=== PATIENT | male | born 1940 | race Caucasian/White ===

== ENCOUNTER 2017-11-12 17:23 | Outpatient (REF) | payer MEDICARE, OTHER, SELFPAY ==
[2017-11-12 21:52] LABS: Hemoglobin A1C 6.1 % (4.5-6.2)
[2017-11-12 22:00] LABS: ALT 30 U/L (12-78); AST 18 U/L (15-37); Albumin 3.2 g/dL (3.4-5.0); Alkaline Phosphatase 95 U/L (46-116); Anion Gap 5.3 mmol/L (3-11); BUN 26 mg/dL (7-18); Bilirubin, Total 0.4 mg/dL (0.2-1.0); CO2 30.7 mmol/L (21.0-32.0); CREATININE 1.42 mg/dL (0.70-1.30); Calcium 8.2 mg/dL (8.5-10.1); Chloride 107 mmol/L (98-107); Cholesterol 157 mg/dL (50-200); Estimated GFR 48.47 (mL/min/1.73m2); Glucose 67 mg/dL (70-100); HDL Cholesterol 60 mg/dL (40-60); LDL CHOLESTEROL 88 mg/dL (<100); Potassium 4.1 mmol/L (3.5-5.1); Sodium 143 mmol/L (136-145); Total Protein 6.1 g/dL (6.4-8.2); Triglyceride 128 mg/dL (30-150)
== END 2017-11-12 17:43 ==
LOC: NCHCN 17:23
PROVIDERS: PCP Family Medicine; Visit Provider Family Medicine
DX: I10 Essential (primary) hypertension (principal); R73.09 Other abnormal glucose; I25.5 Ischemic cardiomyopathy; E78.5 Hyperlipidemia, unspecified; Q61.3 Polycystic kidney, unspecified
CPT/HCPCS: 80053; 80061; 83721; 83036

== ENCOUNTER 2018-11-27 08:37 | Outpatient (REF) | payer MEDICARE, OTHER, SELFPAY ==
[2018-11-27 21:41] LABS: ALT 22 U/L (16-63); AST 18 U/L (15-37); Albumin 3.1 g/dL (3.4-5.0); Alkaline Phosphatase 90 U/L (46-116); Anion Gap 7.1 mmol/L (3-11); BUN 26 mg/dL (7-18); Bilirubin, Total 0.4 mg/dL (0.2-1.0); CO2 28.9 mmol/L (21.0-32.0); CREATININE 1.61 mg/dL (0.70-1.30); Calcium 8.3 mg/dL (8.5-10.1); Calculated LDL 71 mg/dL; Chloride 109 mmol/L (98-107); Cholesterol 144 mg/dL (50-200); Estimated GFR 41.82 (mL/min/1.73m2); Glucose 86 mg/dL (70-100); HDL Cholesterol 54 mg/dL (40-60); Potassium 3.8 mmol/L (3.5-5.1); Sodium 145 mmol/L (136-145); Total Protein 5.9 g/dL (6.4-8.2); Triglyceride 98 mg/dL (30-150)
== END 2018-11-27 08:57 ==
LOC: NCHCN 08:37
PROVIDERS: PCP Family Medicine; Visit Provider Family Medicine
DX: I10 Essential (primary) hypertension (principal); E78.5 Hyperlipidemia, unspecified; R73.09 Other abnormal glucose
CPT/HCPCS: 80053; 80061

== ENCOUNTER 2019-08-04 22:00 | Outpatient (REF) | payer MEDICARE, OTHER, SELFPAY ==
[2019-08-04 20:25] LABS: Anion Gap 9.3 mmol/L (3-11); BUN 26 mg/dL (7-18); CO2 25.7 mmol/L (21.0-32.0); CREATININE 1.51 mg/dL (0.70-1.30); Calcium 8.3 mg/dL (8.5-10.1); Chloride 107 mmol/L (98-107); Estimated GFR 44.92 (mL/min/1.73m2); Glucose 109 mg/dL (74-106); Potassium 4.1 mmol/L (3.5-5.1); Sodium 142 mmol/L (136-145)
== END 2019-08-04 22:20 ==
LOC: NCHCN 22:00
PROVIDERS: PCP Family Medicine; Visit Provider Family Medicine
DX: I10 Essential (primary) hypertension (principal)
CPT/HCPCS: 80048

== ENCOUNTER 2019-11-04 20:25 | Emergency (ER) | payer SELFPAY ==
--- NOTE | 2019-11-05 07:46 | NUR.NOTE ---
Nursing Note: Patient entered in error per Nikki Ndiaye, ROBBY human resources clerk. Aster Steve
== END 2019-11-04 20:40 | disposition other institution (70) ==
PROVIDERS: PCP Family Medicine
DX: Z53.21 Procedure and treatment not carried out due to patient leaving prior to being seen by health care provider (principal)

== ENCOUNTER 2020-01-27 12:57 | Outpatient (REF) | payer MEDICARE, OTHER, SELFPAY ==
[2020-01-27 22:33] LABS: ALT 27 U/L (16-63); AST 19 U/L (15-37); Albumin 3.3 g/dL (3.4-5.0); Alkaline Phosphatase 87 U/L (46-116); BUN 30 mg/dL (7-18); Bilirubin, Total 0.4 mg/dL (0.2-1.0); CREATININE 1.63 mg/dL (0.70-1.30); Calcium 8.7 mg/dL (8.5-10.1); Calculated LDL 80 mg/dL (<100); Chloride 109 mmol/L (98-107); Cholesterol 157 mg/dL (<200); Estimated GFR 41.12 (mL/min/1.73m2); Glucose 104 mg/dL (74-106); HDL Cholesterol 56 mg/dL (40-60); Potassium 3.9 mmol/L (3.5-5.1); Sodium 146 mmol/L (136-145); Total Protein 6.3 g/dL (6.4-8.2); Triglyceride 109 mg/dL (<150)
[2020-01-27 22:40] LABS: Hemoglobin A1C 5.8 % (<5.7)
== END 2020-01-27 13:17 ==
LOC: NCHCN 12:57
PROVIDERS: PCP Family Medicine; Visit Provider Family Medicine
DX: R73.03 Prediabetes (principal); I10 Essential (primary) hypertension; E78.5 Hyperlipidemia, unspecified
CPT/HCPCS: 80053; 80061; 83036

== ENCOUNTER 2020-11-19 18:14 | Outpatient (REF) | payer MEDICARE, OTHER, SELFPAY ==
[2020-11-18 20:47] LABS: HCT 39.6 % (40.0-50.0); HGB 13.2 g/dL (13.5-17.5); MCH 31.5 pg (27.0-33.0); MCHC 33.3 % (32.0-36.0); MCV 94.5 fL (80-95); MPV 10.6 fL (8.0-11.0); Platelet Count 191 10^3/uL (130-400); RBC 4.19 10^6/uL (4.36-5.78); RDW 13.3 % (11.8-14.1); RDW-SD 46.3 fL; WBC 5.75 10^3/uL (4.4-10.8)
[2020-11-18 21:02] LABS: ALT 31 U/L (16-63); AST 18 U/L (15-37); Albumin 3.2 g/dL (3.4-5.0); Alkaline Phosphatase 87 U/L (46-116); Anion Gap 7.8 mmol/L (3-11); BUN 29 mg/dL (7-18); Bilirubin, Total 0.3 mg/dL (0.2-1.0); CO2 27.2 mmol/L (21.0-32.0); CREATININE 1.7 mg/dL (0.70-1.30); Calcium 8.6 mg/dL (8.5-10.1); Chloride 110 mmol/L (98-107); Estimated GFR 39.07 (mL/min/1.73m2); Glucose 102 mg/dL (74-106); Potassium 4.1 mmol/L (3.5-5.1); Sodium 145 mmol/L (136-145); TSH (W/Ref FT4) 2.01 uIU/mL (0.36-3.74); Total Protein 6.1 g/dL (6.4-8.2)
== END 2020-11-19 18:15 | disposition home or self-care (01) ==
LOC: NCHCN 18:14
PROVIDERS: PCP Family Medicine; Visit Provider Family Medicine
DX: E78.5 Hyperlipidemia, unspecified (principal); N18.30 Chronic kidney disease, stage 3 unspecified; R25.1 Tremor, unspecified
CPT/HCPCS: 80053; 85027; 84443

== ENCOUNTER 2021-02-07 10:34 | Outpatient (REF) | payer MEDICARE, OTHER, SELFPAY ==
[2021-02-07 14:44] LABS: HCT 35.5 % (40.0-50.0); HGB 11.5 g/dL (13.5-17.5); MCH 30.7 pg (27.0-33.0); MCHC 32.4 % (32.0-36.0); MCV 94.9 fL (80-95); Platelet Count 206 10^3/uL (130-400); RBC 3.74 10^6/uL (4.36-5.78); RDW 13.5 % (11.8-14.1); RDW-SD 46.9 fL; WBC 6.15 10^3/uL (4.4-10.8)
[2021-02-07 15:20] LABS: Anion Gap 8.5 mmol/L (3-11); BUN 30 mg/dL (7-18); CO2 27.5 mmol/L (21.0-32.0); CREATININE 1.6 mg/dL (0.70-1.30); Calcium 8.4 mg/dL (8.5-10.1); Chloride 107 mmol/L (98-107); Ferritin 205 ng/mL (26-388); Folate 7.3 ng/mL (8.6-20.0); Glucose 87 mg/dL (74-106); Potassium 3.8 mmol/L (3.5-5.1); Sodium 143 mmol/L (136-145)
[2021-02-07 16:00] LABS: Vitamin B12 522 pg/mL (193-986)
== END 2021-02-07 10:35 | disposition home or self-care (01) ==
LOC: NCHCN 10:34
PROVIDERS: PCP Family Medicine; Visit Provider Family Medicine
DX: D53.9 Nutritional anemia, unspecified (principal); I10 Essential (primary) hypertension; N18.30 Chronic kidney disease, stage 3 unspecified; G25.81 Restless legs syndrome
CPT/HCPCS: 80048; 85027; 82607; 82728; 82746

== ENCOUNTER 2021-06-08 09:11 | Inpatient (IN) | payer MEDICARE, OTHER, SELFPAY ==
[2021-06-08] VITALS (55 sets, daily range): BP systolic 121–188; BP diastolic 76–105; PULSE 49–117; RESP 0–22; TEMP 36.2–37.2; O2SAT 93–97
--- NOTE | 2021-06-08 09:00 | DI.CT_ITS ---
Exam(s) CT HEAD WO MR BRAIN WO/W EXAM: MR BRAIN WO/W CLINICAL HISTORY: per bennum. R weakness. TECHNIQUE: Multiplanar multisequence MRI was performed. COMPARISON: CT CT HEAD WO from 06/08/2021 FINDINGS: Noncontrast cranial CT and noncontrast and post contrast brain MRI are interpreted in conjunction. Please note that the patient has a large right upper lobe pulmonary mass highly suspicious for lung c arcinoma. The noncontrast CT shows no significant calvarial bony abnormality. The paranasal sinuses and mastoi d air cells are clear. Orbital and temporal bone structures appear intact. There is mildly hyperattenuating left frontal mass, this appears to be extra-axial and the MRI confir med the extra-axial nature of the mass. The mass causes midline shift of about 4 millimeters to the right. No intracranial hemorrhage identified on CT. MR examination shows a solitary 5.6 cm by 4.4 cm in diameter left frontal extra-axial mass with appar ent dural ???tail??? an with prominent central vascular markings, a pattern which is consistent with meningioma and favors meningioma over dural metastasis. Pattern of enhancement of the mass is mildly heterogeneous and mildly to moderately intense, which is a somewhat atypical presentation for mening ioma but is consistent with the diagnosis of meningioma. No other enhancing lesion or mass lesion identified on MR imaging. Susceptibility weighted imaging s hows no evidence of hemorrhage. Diffusion-weighted imaging shows no diffusion restriction within the aforementioned mass or elsewhere in the brain. There are typical periventricular white matter signal changes consistent with microvascular ischemic process and there are similar findings in the jesus. No other significant signal abnormality seen. M R appearance of the orbits and temporal bone structures is unremarkable. There is normal flow void i n the moltqw-zh-Gehtte vasculature. IMPRESSION: CT and MRI findings of a large left frontal extra-axial mass with appearance most consistent with men ingioma, dural metastasis not entirely excluded but unlikely. No other mass lesion identified to sug gest presence metastatic process. Midline shift to the right is estimated at about 4-5 millimeters. DATA REPOSITORY:
--- NOTE | 2021-06-08 09:12 | W.ED.GENAD ---
Discharge Plan Disposition Patient Disposition: [facility] INPATIENT Condition: Improving Discharge Details Clinical Impression: Mass of right lung, Intracranial mass Primary Care Provider: Efrain Doss ED Provider: Aneesh Escalona Home Meds and New Rx's Prescriptions: Continued cephalexin 500 MG capsule 500 mg PO TID 0RF nitroglycerin 0.4 MG tablet, sublingual 0.4 mg Sublingual DIRECTED PRN0RF hydrochlorothiazide 25 MG tablet 25 mg PO DAILY 0RF aspirin [Aspir-81] 81 MG tablet,delayed release (DR/EC) 81 mg PO DAILY 0RF clopidogrel [Plavix] 75 MG tablet 75 mg PO DAILY 0RF atorvastatin [Lipitor] 80 MG tablet 80 mg PO DAILY 0RF metoprolol succinate 25 MG tablet extended release 24 hr 25 mg PO DAILY 0RF losartan 50 mg Tablet 50 mg PO DAILY 0RF levetiracetam 500 mg Tablet 500 mg PO BID 0RF carbidopa-levodopa 25-100 mg Tablet 1 tab PO TID 0RF Medical Decision Making This is a 80-year-old male brought by EMS from his home in [place]. Unclear the exact onset, but patient apparently felt unwell at approximately 5 AM, went back to bed, then awoke and had right arm and leg weakness with associated headache and light sensitivity. He is not well-known to our hospital but has notes of history of hypertension, colon cancer, hypercholesterolemia, coronary artery disease status post stenting. The patient states to me he has a history of a brain mass, but he does have some mild expressive aphasia. He states to me he has been seen at [place] for this and would not want to have surgery. Upon arrival the patient is able to converse. He is hypertensive with a pulse in the low 60s to 50s. Oxygenating normally and protecting his airway. His exam reveals right arm greater than leg weakness and right upper extremity dysmetria/ataxia. A stat noncontrast CT scan of the head reveals a large left-sided extra axial mass. Chest x-ray reveals large right upper lobe mass. Laboratories White count 4, hematocrit 36, platelets 141. Chemistries with sodium 144, potassium 3.0, chloride 110, bicarb 23, BUN 25, creatinine 1.4, magnesium 1.7, albumin 2.6. Potassium and magnesium were supplemented in the emergency department. Patient was given 10 mg of dexamethasone. Further imaging was obtained with an MRI of the brain as well as CT scan of the chest: MRI reveals persistent of the known naproxen for 0.5 x 5.5 cm mass that is likely meningioma. See formal report. CT scan of the chest shows right upper lobe lung mass with smaller left-sided lung mass concerning for carcinoma. I obtained and reviewed records from the [facility], clinic visit to neurosurgery on April 20. Dr. Miner notes a large 5 x 4 cm mass in left anterior frontal lobe with a dural based. He notes consideration of lung biopsy to rule out underlying malignant process. He states that patient has had some episodes suggestive of seizure and patient was started on Keppra which he states he has been taking. Patient's speech is improving and he is able to reiterate to me that he would not want neurosurgical intervention nor medical or surgical treatment of potential lung cancer. He states to me he wishes to be made comfortable. The patient asked that he speak to his daughter, Earline MILANA Berry. Her phone number is [phone]. She states her father wishes to be DNR/DNI, he has had increasing falls recently and they have known that he wished not to pursue treatment of either known right upper lobe mass or brain mass. He stated he would wish to be potentially in a shelter with his who is in the shelter in [facility]. HPI General Mode of arrival: EMS. Date/Time Provider Initiated Documentation: 06/08/21 10:16. Limitations to Documentation: language barrier. Information obtained by: patient and EMS. History of Present Illness 80 year old M presents to the emergency department with the chief complaint of Generally weak with right arm weakness since 5 AM, described as moderate, Quality is described as constant, and is localized to the right and upper extremity. Patient reports no radiation. Patient started experiencing this unknown and it has been other (Unclear). improves with other things that improve symptom(s), (Not noted by patient) Patient did receive the following treatments prior to arrival, none Related Data Home Medications Medication Instructions Recorded Confirmed aspirin 81 mg tablet,delayed 81 mg PO DAILY 11/13/13 06/08/21 release (Aspir-) atorvastatin 80 mg tablet (Lipitor) 80 mg PO DAILY 11/13/13 06/08/21 cephalexin 500 mg capsule 500 mg PO TID 11/13/13 11/13/13 clopidogrel 75 mg tablet (Plavix) 75 mg PO DAILY 11/13/13 06/08/21 hydrochlorothiazide 25 mg tablet 25 mg PO DAILY 11/13/13 11/13/13 metoprolol succinate 25 mg 25 mg PO DAILY 11/13/13 06/08/21 tablet,extended release 24 hr nitroglycerin 0.4 mg sublingual 0.4 mg SUBLINGUAL DIRECTED PRN 11/13/13 06/08/21 tablet carbidopa 25 mg-levodopa 100 mg 1 tab PO TID 06/08/21 06/08/21 tablet levetiracetam 500 mg tablet 500 mg PO BID 06/08/21 06/08/21 losartan 50 mg tablet 50 mg PO DAILY 06/08/21 06/08/21 Allergies Allergy/AdvReac Type Severity Reaction Status Date / Time tetracycline [Tetracycline] AdvReac Unknown Unverified 06/08/21 10:05 Review of Systems Narrative: Patient complained of headache and light sensitivity to the paramedics. He has had a right arm and leg weakness. Unclear last seen normal PFSH All Active Problems (Updated 06/08/21 @ 13:33 by Aneesh Escalona MD) Mass of right lung (Acute) Intracranial mass (Acute) Medical History (Updated 06/08/21 @ 13:33 by Aneesh Escalona MD) High cholesterol Hypertension Lung cancer Myocardial infarction Parkinson disease Surgical History (Updated 06/08/21 @ 10:47 by Katelyn Jackson) History of coronary artery stent placement Social History Smoking/Tobacco Use Status: Never Smoking risk assessment performed?: Yes Alcohol Intake: never Drug use: Never Substance use type: does not use Do you feel safe at home: Yes Do you feel safe in your relationship?: Yes Additional Social history: in [facility] and has dementia. 5 kids. Exam Narrative Exam Narrative: GEN: awake, alert, well groomed, interactive. HEAD: Normocephalic, atraumatic ENT: Mucous membranes moist, oropharynx unremarkable, External ear exam unremarkable EYES: PERRL, EOMI NECK: Full ROM, no CARA, no menigismus CHEST/RESP: Nontender, clear to auscultation bilateral, no wheeze/rhonchi/rales CARDIOVASCULAR: RRR, no murmur, rub madhu. 2+ Rad pulse bilateral ABDOMEN: Soft, nontender, no mass. +Bowel sounds EXT: Dysmetria of right upper extremity. The right upper extremity is weak and barely able to resist gravity. Right leg slightly weak against resistance. Left upper and lower extremity unremarkable. Neuro: See extremity exam above. Right arm dysmetria, patient has some mild expressive aphasia but is understandable. Psych: Speech intermittently fluent, affect normal
--- NOTE | 2021-06-08 09:25 | DI.RAD_ITS ---
Exam(s) XR CHEST 1V IN DI DEPT CT CHEST W EXAM: CT CHEST W CLINICAL HISTORY: RUL mass TECHNIQUE: COMPARISON: CR XR CHEST 1V IN DI DEPT from 06/08/2021 FINDINGS: Chest radiograph CT examination of the chest are interpreted in conjunction. Chest CT was performed with intravenous infusion 70 cc of Omnipaque 350. Chest radiograph shows mass versus dense consolida tion of the right upper pulmonary lobe and chest CT confirms this as a large heterogeneous mass lesio n arising from the region of the right hilum and invading the central mediastinum with encasement the right mainstem bronchus and invasion into the subcarinal pretracheal regions. Images obtained through the upper abdomen on CT show apparent polycystic renal disease. There are fe w small low-attenuation hepatic lesions consistent with cysts, although metastasis is not absolutely excluded this examination. Adrenal glands are grossly unremarkable. Spleen appears normal. Visuali zed portions of pancreas appear intact. Note is made of coronary artery calcification. The aforementioned large heterogeneous pulmonary mass contains a few calcifications. There is a roun ded 22 millimeter in diameter left infrahilar intrapulmonary mass. There are are multiple probable s mall nodular satellite lesions of the right upper lobe. No gross superior mediastinal adenopathy or supraclavicular adenopathy seen. Thoracic aorta and major branches appear intact. No evidence of pu lmonary embolic disease. No pleural effusion seen. No gross bony lesion identified. IMPRESSION: The appearance is highly suggestive of right upper lobe lung carcinoma with extension to the central mediastinum and multiple cysts satellite lesions and probable left infrahilar pulmonary metastasis. Please see above discussion. RADIATION DOSE DELIVERED: 452.48mGy.cm Total DLP !Error CTDIvol RADIATION OPTIMIZATION: All CT scans at this facility use at least one of these dose optimization te chniques: automated exposure control; mA and/or kV adjustment per patient size (includes targeted exa ms where dose is matched to clinical indication); or iterative reconstruction.
--- NOTE | 2021-06-08 09:30 | RT.EKG_ITS ---
APPROVED REPORT Exam: Resting ECG Reason for Exam: R weakness Patient Location: E HR:54 bpm ECG Measurements Heart Rate 54 AXIS WI 192 P 60 QRSd 118 QRS -43 QT 444 T 59 QTc 423 Conclusion Sinus bradycardia. Nonspecific IVCD with LAD. Inferior Q >35mS, II III aVF Anteroseptal Q >35mS, T neg, V1-V2
[2021-06-08 09:48] LABS: Absolute Basophil Count 0.02 10^3/uL (0.0-0.2); Absolute Eosinophil Count 0.16 10^3/uL (0.0-0.7); Absolute Lymphocyte Count 0.82 10^3/uL (1.2-3.4); Absolute Monocyte Count 0.56 10^3/uL (0.1-0.8); Absolute Neutrophil Count 3.04 10^3/uL (1.2-6.7); Basophils % 0.4; Eosinophils % 3.5; HCT 36.5 % (40.0-50.0); HGB 11.9 g/dL (13.5-17.5); Lymphocytes % 17.8; MCH 30.8 pg (27.0-33.0); MCHC 32.6 % (32.0-36.0); MCV 94.6 fL (80-95); MPV 10.4 fL (8.0-11.0); Monocytes % 12.2; Neutrophils % 66.1; Platelet Count 141 10^3/uL (130-400); RBC 3.86 10^6/uL (4.36-5.78); RDW 13.8 % (11.8-14.1)
[2021-06-08 09:55] LABS: INR 1.1 (0.9-1.1); PTT Activated 23.8 sec (21.0-27.5)
[2021-06-08 09:59] LABS: ALT 22 U/L (16-63); AST 18 U/L (15-37); Albumin 2.6 g/dL (3.4-5.0); Alkaline Phosphatase 78 U/L (46-116); Anion Gap 10.5 mmol/L (3-11); BUN 25 mg/dL (7-18); Bilirubin, Total 0.4 mg/dL (0.2-1.0); CO2 23.5 mmol/L (21.0-32.0); CREATININE 1.4 mg/dL (0.70-1.30); Calcium 7.4 mg/dL (8.5-10.1); Chloride 110 mmol/L (98-107); Estimated GFR 48.89 (mL/min/1.73m2); Glucose 77 mg/dL (74-106); Magnesium 1.7 mg/dL (1.8-2.4); Sodium 144 mmol/L (136-145); Total Protein 5.9 g/dL (6.4-8.2); Troponin I < 50 ng/L (<or=60)
[2021-06-08 10:01] LABS: Source Nasopharynx
[2021-06-08] MEDS: Dexamethasone 10 MG/ML VIAL 8 MG IVP (10:07)
[2021-06-08 10:39] LABS: COVID-19 PCR Negative (Negative)
[2021-06-08 10:42] LABS: Bilirubin Negative (Negative); Blood Small (Negative); Clarity Clear (Clear); Glucose Negative (Negative); Ketones 15 mg/dL (Negative); Leukocyte Esterase Negative (Negative); Nitrite Negative (Negative); Specific Gravity 1.025 (1.005-1.025); Urobilinogen 0.2 EU/dL (Up TO 0.2)
[2021-06-08 11:07] LABS: Bacteria Rare HPF (Negative); Crystals Negative HPF (Negative); Epithelial Cells Rare HPF (Negative); Mucus Moderate (Negative); WBC 0-2 HPF (0-5)
[2021-06-08 11:08] LABS: C & S Indicated? No; Casts 0-2 Hyaline LPF (Negative)
[2021-06-08] MEDS: Gadoterate meglumine 20 ML VIAL IVP (11:15)
[2021-06-08] MEDS: Omnipaque 350 MG/ML 100 ML BTL 70 ML IJ (12:06)
[2021-06-08] MEDS: MAGNESIUM SULFATE 2 GM/50 ML BAG IVPB (12:34)
[2021-06-08] MEDS: POTASSIUM CHLORIDE 20 MEQ/100 ML BAG 50 MEQ IVPB (12:34)
[2021-06-08 12:38] LABS: Troponin I < 50 ng/L (<or=60)
[2021-06-08] MEDS: Normal Saline 1,000 ML 150 ML IV ×2 (13:40→18:30)
--- NOTE | 2021-06-08 16:53 | W.PM.HP.N ---
Date of service: 06/08/21 Time of Service: 16:53 Assessment and Plan Assessment and plan (1) Mass of right lung: Status: Acute Assessment and plan: Likely malignant but he declined bx in past for further evaluation. Questionably a left lung nodule as well seen on imaging. No respiratory symptoms, no hypoxia, cough, hemoptysis. (2) Intracranial mass: Status: Acute Assessment and plan: Though to be a hemangioma. He declined further investigation and teatment. Possibly causing some edema that resulted in the dysarthria he experienced on day of admission. Etiology of LUE weakness. Decadron IV in ED appears to have helped with the dysarthria and/or expressive dysphasia experienced on day of admission (vs resolving TIA). Cont decadron 4mg po daily. Cont Keppra. (3) Hypertension: Assessment and plan: Cont Losartan and metoprolol. Hold HCTZ d/t hypokalemia. Monitor (4) Myocardial infarction: Assessment and plan: Cont ASA Plavix and statin. Troponin neg x 2. (5) Parkinson disease: Assessment and plan: Cont Sinemet. (6) Hypokalemia: Status: Acute Assessment and plan: Hold HCTZ and replace. (7) Discharge planning issues: Status: Acute Assessment and plan: Pt is not thriving at home. Not eating well / wt loss and has been falling. He wishes to reside in the nursing facility in [facility] where his is. Care managment will assist in his disposition. History of Present Illness History of Present Illness Chief Complaint: Brain mass, frequent falls Narrative: This is a 80 yo male with a PMH of a large left sided brain mass thought to be a meningioma and a RUL lung mass, HTN, HLD, CAD/MS, Parkinson's disease. He presented to the ED with c/o generalized weakness, R arm weakness since waking up at appx 5 AM and some difficulty with speech, mild headache and light sensitivity. He had a previous w/u at [facility] for the brain mass and opted for no treatment. No vertigo. No CP, SOA, F/C. He was noted to have mild expressive aphasia on arrival. Lab was unremarkable. MRI of the brain showed a 5.5 x 0.[address] chest with RUL mass and a smaller left-sided lung mass concerning for carcinoma. Records from the [facility], clinic visit to neurosurgery on April [address] Miner notes a large 5 x 4 cm mass in left anterior frontal lobe with a dural base.?Dr Miner also noted consideration of lung biopsy to rule out underlying malignant process.? He states that patient has had some episodes suggestive of seizure and patient was started on Keppra which the patient stated he has been taking. Pt given 10mg IV dexamethasone and his speech improved. He endorsed, to the ED physician, that he did not want any neurosurgical or surgical/medical treatment for the brain or lung mass. He wishes to be comfortable. His daughter, Earline BerryMILANA was contacted by the ED physician and she endorsed that her father was a DNR/DNI status. She also stated he had been having increased falls recently. He did state that he would wish to be potentially in the [facility] where his resides. Review of Systems All systems reviewed & are unremarkable except as noted in HPI and below PFSH All Active Problems (Updated 06/08/21 @ 20:45 by Omar Zaidi MD) Discharge planning issues (Acute) Hypokalemia (Acute) Mass of right lung (Acute) Intracranial mass (Acute) Medical History High cholesterol Hypertension Lung cancer Myocardial infarction Parkinson disease Surgical History History of coronary artery stent placement Social History Smoking/Tobacco Use Status: Never Smoking risk assessment performed?: Yes Alcohol Intake: never Drug use: Never Substance use type: does not use Do you feel safe at home: Yes Do you feel safe in your relationship?: Yes Additional Social history: in [facility] and has dementia. 5 kids. Meds Allergies and Home Medications Allergies Allergy/AdvReac Type Severity Reaction Status Date / Time tetracycline [Tetracycline] AdvReac Unknown Unverified 06/08/21 10:05 Home Medications Medication Instructions Recorded Confirmed Type aspirin 81 mg tablet,delayed 81 mg PO DAILY 11/13/13 06/08/21 History release (Aspir-) atorvastatin 80 mg tablet (Lipitor) 80 mg PO DAILY 11/13/13 06/08/21 History cephalexin 500 mg capsule 500 mg PO TID 11/13/13 11/13/13 History clopidogrel 75 mg tablet (Plavix) 75 mg PO DAILY 11/13/13 06/08/21 History hydrochlorothiazide 25 mg tablet 25 mg PO DAILY 11/13/13 11/13/13 History metoprolol succinate 25 mg 25 mg PO DAILY 11/13/13 06/08/21 History tablet,extended release 24 hr nitroglycerin 0.4 mg sublingual 0.4 mg SUBLINGUAL DIRECTED PRN 11/13/13 06/08/21 History tablet carbidopa 25 mg-levodopa 100 mg 1 tab PO TID 06/08/21 06/08/21 History tablet levetiracetam 500 mg tablet 500 mg PO BID 06/08/21 06/08/21 History losartan 50 mg tablet 50 mg PO DAILY 06/08/21 06/08/21 History Exam Narrative Exam Narrative: Patient lying in bed. Pleasant and conversant. Just previous to my visit he was tearful during nursing evaluation. Const General: cooperative and frail appearing Nutritional Appearance: thin Orientation: alert and oriented x3 Eyes General: appearance normal, both eyes and all related structures Sclera: sclerae normal Resp Effort & Inspection: normal respiratory effort Auscultation: clear to auscultation bilaterally Cardio Rate: regular rate Rhythm: regular rhythm Heart Sounds: S1 normal and S2 normal GI Palpation: soft and nontender Auscultation: normal bowel sounds Skin General skin exam: no rashes or lesions noted Neuro Cranial Nerves: facial strength normal and tongue midline Motor: strength not 5/5 throughout (RUE chair trimmer 4/5 and slow to mount full force.) Extrem General: no pedal edema and no calf tenderness Psych Appearance: grossly normal Speech and Movement: speech clear Affect: blunted Results Labs Result diagrams: 06/08/21 09:33 06/08/21 09:33 Labs: Laboratory Results - last 24 hr 06/08/21 06/08/21 06/08/21 09:33 09:33 09:33 WBC 4.60 RBC 3.86 L Hgb 11.9 L Hct 36.5 L MCV 94.6 MCH 30.8 MCHC 32.6 RDW 13.8 Plt Count 141 MPV 10.4 Immature Gran % 0.0 Neutrophils % 66.1 Lymphocytes % 17.8 Monocytes % 12.2 Eosinophils % 3.5 Basophils % 0.4 Nucleated RBC % 0.0 Absolute Neutrophils 3.04 Absolute Lymphocytes 0.82 L Absolute Monocytes 0.56 Absolute Eosinophils 0.16 Absolute Basophils 0.02 PT 11.0 INR 1.1 APTT 23.8 Sodium 144 Potassium 3.0 L Chloride 110 H Carbon Dioxide 23.5 Anion Gap 10.5 BUN 25 H Creatinine 1.4 H Estimated GFR/1.73 m2 48.89 Glucose 77 Calcium 7.4 L Magnesium 1.7 L Total Bilirubin 0.4 AST 18 ALT 22 Alkaline Phosphatase 78 Troponin I < 50 Total Protein 5.9 L Albumin 2.6 L Urine Color Urine Clarity Urine pH Ur Specific [place] Urine Protein Urine Ketones Urine Blood Urine Nitrite Urine Bilirubin Urine Urobilinogen Ur Leukocyte Esterase Urine RBC Urine WBC Ur Epithelial Cells Urine Crystals Urine Bacteria Urine Casts Urine Mucus Ur Culture Indicated? Urine Glucose COVID-19 Source SARS-CoV-2 (PCR) Patient ABO/Rh Antibody Screen 06/08/21 06/08/21 06/08/21 09:48 09:55 10:20 WBC RBC Hgb Hct MCV MCH MCHC RDW Plt Count MPV Immature Gran % Neutrophils % Lymphocytes % Monocytes % Eosinophils % Basophils % Nucleated RBC % Absolute Neutrophils Absolute Lymphocytes Absolute Monocytes Absolute Eosinophils Absolute Basophils PT INR APTT Sodium Potassium Chloride Carbon Dioxide Anion Gap BUN Creatinine Estimated GFR/1.73 m2 Glucose Calcium Magnesium Total Bilirubin AST ALT Alkaline Phosphatase Troponin I Total Protein Albumin Urine Color Yellow Urine Clarity Clear Urine pH 6.0 Ur Specific [place] 1.025 Urine Protein 30 H Urine Ketones 15 H Urine Blood Small H Urine Nitrite Negative Urine Bilirubin Negative Urine Urobilinogen 0.2 Ur Leukocyte Esterase Negative Urine RBC 10-20 H Urine WBC 0-2 Ur Epithelial Cells Rare Urine Crystals Negative Urine Bacteria Rare Urine Casts 0-2 Hyaline Urine Mucus Moderate Ur Culture Indicated? No Urine Glucose Negative COVID-19 Source Nasopharynx SARS-CoV-2 (PCR) Negative Patient ABO/Rh A Negative Antibody Screen NEGATIVE 06/08/21 12:10 WBC RBC Hgb Hct MCV MCH MCHC RDW Plt Count MPV Immature Gran % Neutrophils % Lymphocytes % Monocytes % Eosinophils % Basophils % Nucleated RBC % Absolute Neutrophils Absolute Lymphocytes Absolute Monocytes Absolute Eosinophils Absolute Basophils PT INR APTT Sodium Potassium Chloride Carbon Dioxide Anion Gap BUN Creatinine Estimated GFR/1.73 m2 Glucose Calcium Magnesium Total Bilirubin AST ALT Alkaline Phosphatase Troponin I < 50 Total Protein Albumin Urine Color Urine Clarity Urine pH Ur Specific [place] Urine Protein Urine Ketones Urine Blood Urine Nitrite Urine Bilirubin Urine Urobilinogen Ur Leukocyte Esterase Urine RBC Urine WBC Ur Epithelial Cells Urine Crystals Urine Bacteria Urine Casts Urine Mucus Ur Culture Indicated? Urine Glucose COVID-19 Source SARS-CoV-2 (PCR) Patient ABO/Rh Antibody Screen Last Vital Signs Temp 36.2 C L 06/08/21 15:48 Pulse 72 06/08/21 15:48 Resp 14 06/08/21 15:48 BP 173/89 H 06/08/21 15:48 Pulse Ox 97 06/08/21 15:48
[2021-06-08] MEDS: Carbidopa 25/Levodopa 100 TAB PO (20:00)
[2021-06-08] MEDS: levETIRAcetam 500 MG TAB PO (20:00)
[2021-06-08] MEDS: Potassium Chloride 20 MEQ TABCR PO (21:32)
[2021-06-09] MEDS: Normal Saline 1,000 ML 150 ML IV ×4 (00:35→20:50)
[2021-06-09 07:03] LABS: Anion Gap 9.1 mmol/L (3-11); BUN 36 mg/dL (7-18); CO2 22.9 mmol/L (21.0-32.0); CREATININE 1.6 mg/dL (0.70-1.30); Calcium 7.6 mg/dL (8.5-10.1); Chloride 110 mmol/L (98-107); Glucose 105 mg/dL (74-106); Potassium 3.7 mmol/L (3.5-5.1); Sodium 142 mmol/L (136-145)
[2021-06-09 07:20] VITALS: BP 124/64; PULSE 48; RESP 14; TEMP 36.4; O2SAT 96
[2021-06-09] MEDS: Carbidopa 25/Levodopa 100 TAB PO ×2 (08:51→13:58)
[2021-06-09] MEDS: Dexamethasone 4 MG TAB PO (08:51)
[2021-06-09] MEDS: Clopidogrel 75 MG TAB PO (08:51)
[2021-06-09] MEDS: Atorvastatin 40 MG TAB 80 MG PO (08:51)
[2021-06-09] MEDS: levETIRAcetam 500 MG TAB PO ×2 (08:51→19:55)
[2021-06-09] MEDS: Losartan 50 MG TAB PO (08:51)
[2021-06-09] MEDS: Aspirin E.C. 81 MG TABEC PO (08:51)
[2021-06-09] MEDS: Potassium Chloride 20 MEQ TABCR PO ×2 (08:51→19:55)
[2021-06-09 09:40] VITALS: PULSE 65
[2021-06-09] MEDS: Metoprolol CR 25 MG TABCR 12.5 MG PO (09:48)
--- NOTE | 2021-06-09 10:59 | PT.INIE ---
Date of service: 06/09/21 Time of Service: 10:59 PT Notes Visit Reasons: Brain Mass,Lung Cancer Physical Therapy Inpatient Initial Evaluation Date: 06/09/2021 Referring Doctor: Omar Zaidi MD PT Orders: PT CONSULT: Eval/treat Precautions: Fall. Standard. Activity as tolerated. Patient Profile/Admitting Diagnosis: Giovanny is a 80-year-old male with admitting diagnoses of mass of right lung, intracranial mass, hypertension, myocardial infarction, consents disease, and hypokalemia with referral to physical therapy for functional mobility assessment and safe discharge planning recommendations. PMHX: All Active Problems?(Updated 06/08/21 @ 20:45 by Omar Zaidi MD) Discharge planning issues (Acute) Hypokalemia (Acute) Mass of right lung (Acute) Intracranial mass (Acute) Medical History? High cholesterol Hypertension Lung cancer Myocardial infarction Parkinson disease Surgical History? History of coronary artery stent placement Social History/Home Situation: Lives alone in a private home. has been living in a usp facility in [place] since March of this year. Independent with mobility performance indoors without assistive device. Uses a small-based quad cane, sometimes wooden stick, for outdoor ambulation. Equipment Owned/DME: [employer], wooden stick Subjective: Agreeable to PT consult. Hopeful that he can join his at the [facility] is a long-term care resident. States that he has had 3 falls in the past year. Denies headache, chest pain, and dizziness throughout session. Did report some mild fatigue after ambulation activity. Objective: General Observation: Seated on bedside chair. IV in left UE. Telemetry monitoring in place. Bloodshot eye on the right. Swollen right hand and right distal forearm. Mental Status: Alert and oriented as to person, place, time, and purpose although did have have delayed some responses or word finding difficulty throughout session Pain: Denies ROM: Right Upper Extremity: Shoulder Flexion to 100 degrees. Shoulder abduction 90 degrees. Elbow flexion WFL. Wrist flexion WFL. Functional opening and closing of hand WFL. Left Upper Extremity: houlder Flexion WFL. Shoulder abduction WFL. Elbow flexion WFL. Wrist flexion WFL. Functional opening and closing of hand WFL. Right Lower Extremity: Hip flexion WFL. Hip abduction WFL. Knee flexion WFL. Ankle dorsiflexion to neutral only. Ankle plantarflexion WFL. Left Lower Extremity: Hip flexion WFL. Hip abduction WFL. Knee flexion WFL. Ankle dorsiflexion WFL. Ankle plantarflexion WFL. Strength: Right Upper Extremity: Shoulder flexors 3-/5. Shoulder abductors 3-/5. Elbow flexors 4-/5. Elbow extensors 4-/5. Reach Truck Operator weak. Left Upper Extremity: Shoulder flexors 4/5. Shoulder abductors 4/5. Elbow flexors 4/5. Elbow extensors 4/5. Reach Truck Operator strong. Right Lower Extremity: Hip flexors 3+/5. Hip abductors 3+/5. Knee flexors 4-/5. Knee extensors 4-/5. Ankle dorsiflexors 3-/5. Ankle plantarflexors 4-/5. Left Lower Extremity: Hip flexors 4/5. Hip abductors 5/5. Knee flexors 5/5. Knee extensors 4/5. Ankle dorsiflexors 4/5. Ankle plantarflexors 4/5. Bed Mobility/Transfers: Sit to stand contact guard assist Stand to sit contact guard assist Gait: Instructed patient with level surface ambulation of 200 feet requiring contact guard assist using FWW. R hand with increased tendency to slip off R walker handle, needs R arm pronated and R wrist minimally deviated ulnarly to minimize slippage. R step height decreased. R step length decreased. R foot tends to hit R hindleg of walker, verbal cues needed to prevent this. Balance: Static Sitting: Normal Dynamic Sitting: Normal Static Standing: Fair Dynamic Standing: Fair Special Tests: Mobility Limitations Standardized Measure [facility] AM-PAC 6 clicks Basic Mobility Inpatient Short Form: Raw Score: 21 CMS Score: 29% deficit 4-stage balance test: Able to perform feet together for 10 seconds but is unable to do semi-tandem, full tandem, and one-legged stance with increased risk for falls. Neuro Testing: Impaired rapid alternating movement. Awareness of R side appears diminished as evidenced by R foot hitting R hindleg of walker. Informed Consent/Education: Patient was instructed in purpose of PT consult and plan of care. Agreeable to proceed with established PT POC to achieve personal goals. ASSESSMENT: Giovanny demonstrates difficulty with ambulation, impaired balance, and decreased AROM/weakness in R UE resulting to impairment in mobility ADL performance. Patient presents with clinical signs and symptoms consistent with current/admitting diagnoses that have resulted to mobility limitations, gait instability, generalized weakness, and overall ADL decline as demonstrated by the following impairment level findings: 1. Decreased strength to R UE/LE major muscle groups 2. Impaired standing balance 3. Impaired activity tolerance 4. Limitation of joint range of motion in R shoulder 5. Decreased DF and awareness of R foot 6. Swelling in B LE Impairments are contributing to the following functional limitations: 1. Difficulty with ambulation without assistive device and physical assistance 2. Increased completion time for mobility ADL performance 3. Increased risk for falls 4. Difficulty with managing steps alone safely Patient is assessed as a 45830 moderate complexity based on the following: History: 80-year-old male with past medical history as indicated above Examination: Demonstrable impairment in strength, balance, and mobility level with underlying impairments and functional limitations as exhibited above as well as deficit score of 29% utilizing the [facility] Mobility Inpatient Short Form Presentation: Evolving Decision Makin moderate complexity Goals: Goals X1 week 1. Supine-Sit independent 2. Sit-Supine independent 3. Sit-Stand independent 4. Stand-Sit independent with FWW 5. Bed-Chair independent with FWW 6. Chair-Bed independent with FWW 7. Independent gait on level surface with use of FWW for at least 300 feet without report of pain nor dyspnea 8. Good static and dynamic standing balance/tolerance Plan of Care/Treatment Plan: 1-2x/day, 7 days/week x 1 week. Plan of care has been reviewed with the ACID POLYMERIZATION OPERATOR providing the service under Physical Therapy direction. Initiate Physical Therapy intervention for pain management as needed, strengthening, bed mobility, transfers, gait, stairs, balance training, and use of assistive device. DISCHARGE RECOMMENDATIONS: [] Home with no services [] [] Home with services [specify] [] Home with outpatient PT [] [X] SNF for continued rehabilitation. Patient will benefit from usp facility placement for continued skilled physical therapy services in order to progress mobility level, strength, and balance in preparation for a safe discharge to home. [] Water Attendant Care [] [] SNF versus LTC based on ability to participate and progress [] TREATMENT CODE/TIME: 97819 x 20 minutes, 83395 x 19 minutes beginning at 10:59 AM. Thank you for the opportunity to participate in the care of this patient. Diana Willams PT, DPT, CLT [facility] [place], [place]
--- NOTE | 2021-06-09 14:44 | PT.INTREAT ---
Date of service: 06/09/21 Time of Service: 14:45 PT Notes Visit Reasons: Brain Mass,Lung Cancer Physical Therapy Inpatient Treatment Note Date: 06/09/2021 Precautions: Fall. Standard. Activity as tolerated. Subjective: Agreeable to PT session. Daughter Rufina present for the seated exercise part of the session. Denies headache, chest pain, and dizziness throughout session. Objective: General Observation: Seated on bedside chair.? IV in left UE.? Telemetry monitoring in place.? Bloodshot eye on the right.? Swollen right hand and right distal forearm. Mental Status: Alert and oriented as to person, place, time, and purpose although did have have delayed some responses or word finding difficulty throughout session Pain: Denies Bed Mobility/Transfers: Sit to stand contact guard assist Stand to sit contact guard assist Gait: Instructed patient with level surface ambulation of 300 feet requiring contact guard assist using FWW. R hand stayed on R walker handle throughout the walk.? R step height decreased. R step length decreased.? R foot tends to hit R hindleg of walker,? verbal cues needed to prevent this. Balance: Static Sitting: Normal Dynamic Sitting: Normal Static Standing: Fair Dynamic Standing: Fair ASSESSMENT: Participated with exercises and ambulation activities without undue difficulty for this session. Remains in need of cueing to prevent R foot from hitting R hindleg of walker, may have some decreased awareness in the R lower extremity. May need to put a neon tape on R hindleg just to help with awareness during ambulation. Also has impaired spatial awareness as he has difficulty staying within the walker, may be related to issues with R eye being bloodshot. Did also have some difficulty following visual cues while doing seated exercises, consider staying on patient's L side for a clearer view for him. Agreeable to being with his at [facility] once cleared to go by hospitalist. Agreeable to continuing with PT while on admission here. DISCHARGE RECOMMENDATIONS: [] ? Home with no services [] [] ? Home with services [specify] [] ? Home with outpatient PT [] [X] ? SNF for continued rehabilitation.? Patient will benefit from long term facility placement for continued skilled physical therapy services in order to progress mobility level, strength, and balance in preparation for a safe discharge to home. [] ? Single Needle Tufting Machine Operator Care [] [] ? SNF versus LTC based on ability to participate and progress [] TREATMENT CODE/TIME:? 86055 x 20 minutes, 51911 x 18 minutes beginning at 14:44 PM.
--- NOTE | 2021-06-09 14:51 | PGE_ITS ---
Date of Service Date of service: 06/09/21 Time of Service: 14:52 Assessment and Plan Assessment and plan (1) Mass of right lung: Status: Acute Assessment and plan: Likely malignant but he declined bx in past for further evaluation. Questionably a left lung nodule as well seen on imaging. No respiratory symptoms, no hypoxia, cough, hemoptysis. 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 He declined further investigation and teatment. Possibly causing some edema that resulted in the dysarthria he experienced on day of admission. Etiology of LUE weakness. Decadron IV in ED appears to have helped with the dysarthria and/or expressive dysphasia experienced on day of admission (vs resolving TIA). Cont decadron 4mg po daily. Cont Keppra. (3) Hypertension: Assessment and plan: Cont Losartan and metoprolol. Hold HCTZ d/t hypokalemia. BP stable. Monitor (4) Myocardial infarction: Assessment and plan: Cont ASA Plavix and statin. Troponin neg x 2. No CP/SOA (5) Parkinson disease: Assessment and plan: Cont Sinemet. (6) Hypokalemia: Status: Acute Assessment and plan: Hold HCTZ and replace. K now corrected. (7) Discharge planning issues: Status: Acute Assessment and plan: Pt is not thriving at home. Not eating well / wt loss and has been falling. He wishes to reside in the nursing facility in [facility] where his is. Care management will assist in his disposition. Subjective Subjective Patient reports: no new complaints, feels better, tolerating a regular diet and afebrile; denies nausea, vomiting or shortness of breath Exam Narrative Exam Narrative: Pt sitting in bed. Pleasant and conversational. Const General: cooperative and frail appearing Nutritional Appearance: thin Orientation: alert and oriented x3 Eyes General: appearance normal, both eyes and all related structures Sclera: sclerae normal Resp Effort & Inspection: normal respiratory effort Auscultation: clear to auscultation bilaterally Cardio Rate: regular rate Rhythm: regular rhythm Heart Sounds: S1 normal and S2 normal GI Palpation: soft and nontender Auscultation: normal bowel sounds Skin General skin exam: no rashes or lesions noted Neuro Cranial Nerves: facial strength normal and tongue midline Motor: strength not 5/5 throughout (RUE calf skinner 4/5 and slow to mount full force.) Extrem General: no pedal edema and no calf tenderness Psych Appearance: grossly normal Speech and Movement: speech clear Affect: blunted Objective Last Vital Signs Temp 36.4 C L 06/09/21 07:20 Pulse 65 06/09/21 09:40 Resp 14 06/09/21 07:20 BP 124/64 06/09/21 07:20 Pulse Ox 96 06/09/21 07:20 Laboratory Results - last 24 hr 06/09/21 06:26 Sodium 142 Potassium 3.7 Chloride 110 H Carbon Dioxide 22.9 Anion Gap 9.1 BUN 36 H Creatinine 1.6 H Estimated GFR/1.73 m2 41.90 Glucose 105 Calcium 7.6 L
--- NOTE | 2021-06-09 15:30 | PGE_ITS ---
Date of Service Date of service: 06/09/21 Time of Service: 15:30 Assessment and Plan Assessment and plan (1) Mass of right lung: Status: Acute Assessment and plan: Likely malignant but he declined bx in past for further evaluation. Questionably a left lung nodule as well seen on imaging. No respiratory symptoms, no hypoxia, cough, hemoptysis. 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 He declined further investigation and teatment. Possibly causing some edema that resulted in the dysarthria he experienced on day of admission. Etiology of LUE weakness. Decadron IV in ED appears to have helped with the dysarthria and/or expressive dysphasia experienced on day of admission (vs resolving TIA). Cont decadron 4mg po daily. Cont Keppra. (3) Hypertension: Assessment and plan: Cont Losartan and metoprolol. Hold HCTZ d/t hypokalemia. BP stable. Monitor (4) Myocardial infarction: Assessment and plan: Cont ASA Plavix and statin. Troponin neg x 2. No CP/SOA (5) Parkinson disease: Assessment and plan: Cont Sinemet. (6) Hypokalemia: Status: Acute Assessment and plan: Hold HCTZ and replace. K now corrected. (7) Discharge planning issues: Status: Acute Assessment and plan: Pt is not thriving at home. Not eating well / wt loss and has been falling. He wishes to reside in the nursing facility in [facility] where his is. Care management will assist in his disposition. (8) Gait disturbance: Status: Acute Assessment and plan: PT evaluation: 1.? Decreased strength to R UE/LE major muscle groups 2.? Impaired standing balance 3.? Impaired activity tolerance 4.? Limitation of joint range of motion in R shoulder 5.? Decreased DF and awareness of R foot 6.? Swelling in B LE Subjective Subjective Patient reports: no new complaints, feels better, tolerating a regular diet and afebrile; denies nausea, vomiting or shortness of breath Interval history since last seen: Sitting in chair. Conversant. He was tearful speaking with Rehab Care Assistant today. He endorses desire, again, to reside with his at the nursing facility in [place]. Exam Narrative Exam Narrative: Pt sitting in bed. Pleasant and conversational. Const General: cooperative and frail appearing Nutritional Appearance: thin Orientation: alert and oriented x3 Eyes General: appearance normal, both eyes and all related structures Sclera: sclerae normal Resp Effort & Inspection: normal respiratory effort Auscultation: clear to auscultation bilaterally Cardio Rate: regular rate Rhythm: regular rhythm Heart Sounds: S1 normal and S2 normal GI Palpation: soft and nontender Auscultation: normal bowel sounds Skin General skin exam: no rashes or lesions noted Neuro Cranial Nerves: facial strength normal and tongue midline Motor: strength not 5/5 throughout (RUE micro paleontologist 4/5 and slow to mount full force.) Extrem General: no pedal edema and no calf tenderness Psych Appearance: grossly normal Speech and Movement: speech clear Affect: blunted Objective Last Vital Signs Temp 36.4 C L 06/09/21 07:20 Pulse 65 06/09/21 09:40 Resp 14 06/09/21 07:20 BP 124/64 06/09/21 07:20 Pulse Ox 96 06/09/21 07:20 Laboratory Results - last 24 hr 06/09/21 06:26 Sodium 142 Potassium 3.7 Chloride 110 H Carbon Dioxide 22.9 Anion Gap 9.1 BUN 36 H Creatinine 1.6 H Estimated GFR/1.73 m2 41.90 Glucose 105 Calcium 7.6 L
[2021-06-09 15:35] VITALS: BP 142/75; PULSE 53; RESP 16; TEMP 36.1; O2SAT 97
--- NOTE | 2021-06-09 18:03 | PDOC.CMIN ---
- If Service Date Differs Date of service: 06/09/21 Time of Service: 18:03 Care Management Initial Assess REASON FOR HOSPITALIZATION:: brain mass, lung cancer PAST MEDICAL HISTORY/PAST SURGICAL HISTORY:: All Active Problems (Updated 06/08/21 @ 20:45 by Omar Zaidi MD). Discharge planning issues (Acute). Hypokalemia (Acute). Mass of right lung (Acute). Intracranial mass (Acute). Medical History . High cholesterol. Hypertension. Lung cancer. Myocardial infarction. Parkinson disease. Surgical History . History of coronary artery stent placement PREVIOUS FUNCTIONAL STATUS/SOCIAL/FAMILY SUPPORTS:: Giovanny lives in [facility]. His was placed at [facility] a few months ago, and he stated that it has been hard at home without her. He has five children, who are local and supportive. He has been independent with ADLs, but has declined since his has not been there. CURRENT FUNCTIONAL STATUS:: Giovanny was sitting up in bed when CM met with him. He was teary eyed when talking about how life has been without his of many years. He stated that she was placed at [facility], and she will likely be there irrigation manager. He would like to go to [place] as well to be with her. Per PT, he would benefit from SNF. CM sent a referral to [place], and will follow up on Saturday, as it will not be reviewed over the weekend. CM will continue to follow. ADVANCE DIRECTIVES:: On file, Earline Berry listed as agent. (daughter) Has patient been provided with info about the portal/API?: Yes Did the patient sign up for the portal?: No CODE STATUS:: DNR/DNI INSURANCE COVERAGE / FINANCIAL ISSUES:: [email or web address]/ [employer] life CURRENT HOME/COMMUNITY SERVICES/EQUIPMENT:: None PRIMARY CARE PHYSICIAN:: Efrain Doss POTENTIAL DISCHARGE NEEDS:: Coordinated discharge to [facility], if accepted. PATIENT/FAMILY EDUCATION NEEDS:: Review discharge instructions, discussion of self care needs and goals of care. ANTICIPATED BARRIERS TO DISCHARGE:: None. TRANSPORTATION:: Via w/c van or private vehicle by family. PLAN:: Giovanny would like to go to [facility], where his resides. CM sent a referral for review. He will transport via w/c van vs private vehicle. He will follow up with his PCP and discharge plan of care. CM will continue to follow.
[2021-06-09 23:20] VITALS: BP 165/87; PULSE 57; RESP 16; TEMP 36.5; O2SAT 94
[2021-06-10] MEDS: Normal Saline Flush 10 ML SYR IVP (02:28)
[2021-06-10] MEDS: Calcium Carbonate *TUMS* 500 MG CHEW 1000 MG PO (02:28)
[2021-06-10] MEDS: Normal Saline 1,000 ML 150 ML IV (05:34)
--- NOTE | 2021-06-10 05:41 | NUR.NOTE ---
Nursing Note: Pt accidentally spilled urinal in bed. Pt called staff in to assist and was very angry about the situation. Pt stated that he was ready to Pack his things a go. Pt stated that he was upset that he messed up the bed, he hasn't been able to get any sleep overnight, and that its been 3 days since hes been admitted and doesn't have an answer about where and when he will be leaving. Pt stated that he doesn't want anymore medication because last night he had very bad acid reflux. Reported mild relief with TUMS. Pt now sitting up in the chair. RN spoke with Pt, helped Pt recline in the recliner and gave some warm blankets. Encouraged Pt to try to take a nap and rest before the day shift arrives in the morning. Pt in agreement with this plan and is thankful. Pt refused chair alarm to be reconnected while he is in chair. Pt educated on importance of fall precautions, he states he understands and will call the call ulrich if he wants to get up. Will continue to monitor.
[2021-06-10 07:50] VITALS: BP 167/84; PULSE 55; RESP 17; TEMP 37.3; O2SAT 96
[2021-06-10] MEDS: Aspirin E.C. 81 MG TABEC PO (08:04)
[2021-06-10] MEDS: Atorvastatin 40 MG TAB 80 MG PO (08:04)
[2021-06-10] MEDS: Dexamethasone 4 MG TAB PO (08:04)
[2021-06-10] MEDS: levETIRAcetam 500 MG TAB PO ×2 (08:04→20:22)
[2021-06-10] MEDS: Potassium Chloride 20 MEQ TABCR PO ×2 (08:04→20:22)
[2021-06-10] MEDS: Losartan 50 MG TAB PO (08:04)
[2021-06-10] MEDS: Clopidogrel 75 MG TAB PO (08:04)
--- NOTE | 2021-06-10 09:09 | PTTR_ITS ---
PT Notes Visit Reasons: Brain Mass,Lung Cancer Direct Treatment Time: [30] Total Treatment Time: [30] Treatment Units Time Duration Manual Therapy (98191) [] [] Therapeutic Procedures (37570) [2] [30] Neurological Re-Education (29442) [] [] Ultrasound (56811) [] [] Gait Training (53380) [] [] Therapeutic Activity (85876) [] [] Self Care Training (65914) [] [] Low IE (47046) [] [] Mod IE (99593) [] [] High IE (57190) [] [] Subjective: Pt very depressed and reports I am getting weaker, pt reports having a difficult time sleeping due to stomach upset. pt agreed to participate with therapy after strong encouragement from CERTIFIED CREDIT COUNSELOR. Objective: Manual therapy 71034(30mins): THERA EX: 1.? With hands clasped hands, D1/D2 flexion and extrension x 10 2.? Moved clasped hands together from chest to full elbow extension forward x 10 3.? Moved clasped hands from one arm rest to the other to promote trunk rotation with UE movements x 10 4.? Seated marches x 10 5.? LAQs x 10 6.? Seated heel raises x 10 7.? Seated toes raises x 10 8. Standing scapular retraction x 10 9. Standing shoulder elevation x 10 10. Static standing with e.c./e.o. Assessment: Pt tolerated activity well with pt requiring verbal, visual and tactile cues for guidance with activity and focused muscle activation to get pt to maximize available arc of motion. Plan: as per primary PT recommendation SNF for continued rehabilitation.? Keri ent will benefit from care home facility placement for continued skilled physical therapy services in order to progress mobility level, strength, and balance in preparation for a safe discharge to home.
[2021-06-10] MEDS: amLODIPine 5 MG TAB PO (09:34)
--- NOTE | 2021-06-10 14:26 | PGE_ITS ---
Date of Service Date of service: 06/10/21 Time of Service: 14:28 Assessment and Plan Assessment and plan (1) Mass of right lung: Status: Acute Assessment and plan: Likely malignant but he declined bx in past for further evaluation. Questionably a left lung nodule as well seen on imaging. No respiratory symptoms, no hypoxia, cough, hemoptysis. 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 He declined further investigation and teatment. Possibly causing some edema that resulted in the dysarthria he experienced on day of admission. Etiology of LUE weakness. Decadron IV in ED appears to have helped with the dysarthria and/or expressive dysphasia experienced on day of admission (vs resolving TIA). Change decadron to 2mg daily and wean off. Cont Keppra. (3) Hypertension: Assessment and plan: Cont Losartan and metoprolol. Hold HCTZ d/t hypokalemia. BP stable. Monitor (4) Myocardial infarction: Assessment and plan: Cont ASA Plavix and statin. Troponin neg x 2. No CP/SOA (5) Parkinson disease: Assessment and plan: Cont Sinemet. (6) Hypokalemia: Status: Acute Assessment and plan: Hold HCTZ and replace. K now corrected. Monitor (7) Discharge planning issues: Status: Acute Assessment and plan: Pt is not thriving at home. Not eating well / wt loss and has been falling. Eating better here. He wishes to reside in the nursing facility in [facility] where his is. Care management will assist in his disposition. (8) Gait disturbance: Status: Acute Assessment and plan: PT evaluation: 1.? Decreased strength to R UE/LE major muscle groups 2.? Impaired standing balance 3.? Impaired activity tolerance 4.? Limitation of joint range of motion in R shoulder 5.? Decreased DF and awareness of R foot 6.? Swelling in B LE Subjective Subjective Patient reports: no new complaints, feels better, tolerating a regular diet and afebrile; denies nausea, vomiting or shortness of breath Interval history since last seen: Sitting in chair. Conversant. States he didn't sleep well. Exam Narrative Exam Narrative: Pt sitting in bed. Pleasant and conversational. Appears more sad. Const General: cooperative and frail appearing Nutritional Appearance: thin Orientation: alert and oriented x3 Eyes General: appearance normal, both eyes and all related structures Sclera: sclerae normal Resp Effort & Inspection: normal respiratory effort Auscultation: clear to auscultation bilaterally Cardio Rate: regular rate Rhythm: regular rhythm Heart Sounds: S1 normal and S2 normal GI Palpation: soft and nontender Auscultation: normal bowel sounds Skin General skin exam: no rashes or lesions noted Neuro Cranial Nerves: facial strength normal and tongue midline Motor: strength not 5/5 throughout (RUE patch sander 4/5 and slow to mount full force.) Extrem General: no pedal edema and no calf tenderness Psych Appearance: grossly normal Speech and Movement: speech clear Affect: blunted Objective Last Vital Signs Temp 37.3 C 06/10/21 07:50 Pulse 55 L 06/10/21 07:50 Resp 17 06/10/21 07:50 BP 167/84 H 06/10/21 07:50 Pulse Ox 96 06/10/21 07:50
[2021-06-10 15:20] VITALS: BP 148/73; PULSE 53; RESP 16; TEMP 36.3; O2SAT 98
[2021-06-10 23:40] VITALS: BP 164/87; PULSE 56; RESP 18; TEMP 36.6; O2SAT 95
[2021-06-11 07:44] LABS: Anion Gap 5.9 mmol/L (3-11); BUN 17 mg/dL (7-18); CO2 30.1 mmol/L (21.0-32.0); CREATININE 0.7 mg/dL (0.70-1.30); Calcium 9.2 mg/dL (8.5-10.1); Chloride 105 mmol/L (98-107); Glucose 99 mg/dL (74-106); Potassium 4.1 mmol/L (3.5-5.1); Sodium 141 mmol/L (136-145)
[2021-06-11 07:59] VITALS: BP 160/83; PULSE 62; RESP 14; TEMP 36.5; O2SAT 97
[2021-06-11] MEDS: Clopidogrel 75 MG TAB PO (08:46)
[2021-06-11] MEDS: amLODIPine 5 MG TAB PO (08:47)
[2021-06-11] MEDS: Potassium Chloride 20 MEQ TABCR PO ×2 (08:47→20:23)
[2021-06-11] MEDS: Atorvastatin 40 MG TAB 80 MG PO (08:47)
[2021-06-11] MEDS: levETIRAcetam 500 MG TAB PO ×2 (08:47→20:23)
[2021-06-11] MEDS: Losartan 50 MG TAB PO (08:47)
[2021-06-11] MEDS: Dexamethasone 4 MG TAB 2 MG PO (08:47)
[2021-06-11] MEDS: Aspirin E.C. 81 MG TABEC PO (08:47)
[2021-06-11] MEDS: Normal Saline Flush 10 ML SYR IVP (08:53)
--- NOTE | 2021-06-11 11:49 | PTTR_ITS ---
PT Notes Visit Reasons: Brain Mass,Lung Cancer Direct Treatment Time: [30] Total Treatment Time: [30] Treatment Units Time Duration Manual Therapy (09338) [] [] Therapeutic Procedures (25642) [] [] Neurological Re-Education (74245) [] [] Ultrasound (32459) [] [] Gait Training (33193) [2] [30] Therapeutic Activity (18187) [] [] Self Care Training (25667) [] [] Low IE (98652) [] [] Mod IE (88082) [] [] High IE (18864) [] [] Subjective: Pt has been waiting for therapy when approached by SWING DRIVER this morning, pt has been doing seated AROM when SWING DRIVER arrived at pt room. Objective: Manual therapy 29562(30mins): Gait training:, pt gait trained 300'x2 using FWW SBA with pt taking seated rest break at the end of hallway, pt cue for posture correction, increaed step height and step lenght to prevent pt from shuffling and staying at the middle of the hallway and gait training following straight line to avoid wall collision. Assessment: Pt able to manage tight spaces of pt room to allow pt to sit using recliner near the window, pt became emotional when pt reported that he is going out of the hospital tomorrow and is staying at a SNF at [place] requiring sometime for pt to collect himself, pt politely requested this SWING DRIVER to leave the room and close the door behind after getting situated at the recliner near the window. pt emotional state reported to staff at the nurses station for monitoring and documentation. Plan: as per primary PT recommendation?SNF for continued rehabilitation.? Patient will benefit from detention facility placement for continued skilled physical therapy services in order to progress mobility level, strength, and balance in preparation for a safe discharge to home.
--- NOTE | 2021-06-11 11:49 | PT.INTREAT ---
PT Notes Visit Reasons: Brain Mass,Lung Cancer Direct Treatment Time: [30] Total Treatment Time: [30] Treatment Units Time Duration Manual Therapy (78423) [] [] Therapeutic Procedures (26077) [] [] Neurological Re-Education (68524) [] [] Ultrasound (40535) [] [] Gait Training (28100) [2] [30] Therapeutic Activity (45730) [] [] Self Care Training (14217) [] [] Low IE (86384) [] [] Mod IE (80194) [] [] High IE (03766) [] [] Subjective: Pt has been waiting for therapy when approached by TURNAROUND PLANNER this morning, pt has been doing seated AROM when TURNAROUND PLANNER arrived at pt room. Objective: Manual therapy 04502(30mins): Gait training:, pt gait trained 300'x2 using FWW SBA with pt taking seated rest break at the end of hallway, pt cue for posture correction, increaed step height and step lenght to prevent pt from shuffling and staying at the middle of the hallway and gait training following straight line to avoid wall collision. Assessment: Pt able to manage tight spaces of pt room to allow pt to sit using recliner near the window, pt became emotional when pt reported that he is going out of the hospital tomorrow and is staying at a SNF at [place] requiring sometime for pt to collect himself, pt politely requested this TURNAROUND PLANNER to leave the room and close the door behind after getting situated at the recliner near the window. pt emotional state reported to staff at the nurses station for monitoring and documentation. Plan: as per primary PT recommendation?SNF for continued rehabilitation.? Patient will benefit from [facility] facility placement for continued skilled physical therapy services in order to progress mobility level, strength, and balance in preparation for a safe discharge to home.
--- NOTE | 2021-06-11 13:33 | W.PM.PROGNOT ---
Date of Service Date of service: 06/11/21 Time of Service: 13:34 Assessment and Plan Assessment and plan (1) Mass of right lung: Status: Acute Assessment and plan: Likely malignant but he declined bx in past for further evaluation. Questionably a left lung nodule as well seen on imaging. No respiratory symptoms, no hypoxia, cough, hemoptysis. 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 He declined further investigation and teatment. Possibly causing some edema that resulted in the dysarthria he experienced on day of admission. Etiology of LUE weakness. Decadron IV in ED appears to have helped with the dysarthria and/or expressive dysphasia experienced on day of admission (vs resolving TIA). Change decadron to 2mg daily and wean off. Cont Keppra. (3) Hypertension: Assessment and plan: Cont Losartan and metoprolol. Held HCTZ d/t hypokalemia. K now normalized. BP primarily in the 140-160's. Add amlodipine 5mg daily. Monitor (4) Myocardial infarction: Assessment and plan: Cont ASA Plavix and statin. Troponin neg x 2. No CP/SOA (5) Parkinson disease: Assessment and plan: Cont Sinemet. (6) Hypokalemia: Status: Acute Assessment and plan: Stop HCTZ. K now corrected. Monitor (7) Discharge planning issues: Status: Acute Assessment and plan: Pt is not thriving at home. Not eating well / wt loss and has been falling. Eating better here. He wishes to reside in the nursing facility in [facility] where his is. Care management will assist in his disposition. (8) Gait disturbance: Status: Acute Assessment and plan: PT evaluation: 1.? Decreased strength to R UE/LE major muscle groups 2.? Impaired standing balance 3.? Impaired activity tolerance 4.? Limitation of joint range of motion in R shoulder 5.? Decreased DF and awareness of R foot 6.? Swelling in B LE Subjective Subjective Patient reports: no new complaints, tolerating a regular diet and afebrile; denies nausea, vomiting or shortness of breath Interval history since last seen: Sitting in chair. Conversant. States he didn't sleep well. He stated he has talked with his on the phone today. Exam Narrative Exam Narrative: Pt sitting in bed. Pleasant and conversational. Const General: cooperative and frail appearing Nutritional Appearance: thin Orientation: alert and oriented x3 Eyes General: appearance normal, both eyes and all related structures Sclera: sclerae normal Resp Effort & Inspection: normal respiratory effort Auscultation: clear to auscultation bilaterally Cardio Rate: regular rate Rhythm: regular rhythm Heart Sounds: S1 normal and S2 normal GI Palpation: soft and nontender Auscultation: normal bowel sounds Skin General skin exam: no rashes or lesions noted Neuro Cranial Nerves: facial strength normal and tongue midline Motor: strength not 5/5 throughout (RUE oil driller 4/5 and slow to mount full force.) Extrem General: no pedal edema and no calf tenderness Psych Appearance: grossly normal Speech and Movement: speech clear Affect: normal affect Objective Last Vital Signs Temp 36.5 C 06/11/21 07:59 Pulse 62 06/11/21 07:59 Resp 14 06/11/21 07:59 BP 160/83 H 06/11/21 07:59 Pulse Ox 97 06/11/21 07:59 Laboratory Results - last 24 hr 06/11/21 05:48 Sodium 141 Potassium 4.1 Chloride 105 Carbon Dioxide 30.1 Anion Gap 5.9 BUN 17 Creatinine 0.7 Estimated GFR/1.73 m2 >= 60.00 Glucose 99 Calcium 9.2
[2021-06-11 23:23] VITALS: BP 155/79; PULSE 65; RESP 16; TEMP 36.2; O2SAT 96
[2021-06-12 07:29] VITALS: BP 158/83; PULSE 58; RESP 20; TEMP 35.9; O2SAT 97
[2021-06-12] MEDS: levETIRAcetam 500 MG TAB PO ×2 (08:08→20:49)
[2021-06-12] MEDS: Dexamethasone 4 MG TAB 2 MG PO (08:08)
[2021-06-12] MEDS: Clopidogrel 75 MG TAB PO (08:08)
[2021-06-12] MEDS: Aspirin E.C. 81 MG TABEC PO (08:09)
[2021-06-12] MEDS: Potassium Chloride 20 MEQ TABCR PO ×2 (08:09→20:49)
[2021-06-12] MEDS: amLODIPine 5 MG TAB PO (08:09)
[2021-06-12] MEDS: Atorvastatin 40 MG TAB 80 MG PO (08:09)
[2021-06-12] MEDS: Losartan 50 MG TAB PO (08:09)
--- NOTE | 2021-06-12 11:27 | PGE_ITS ---
Date of Service Date of service: 06/12/21 Time of Service: 11:27 Assessment and Plan Assessment and plan (1) Mass of right lung: Status: Acute Assessment and plan: Chest CT demonstrated the following: Chest radiograph CT examination of the chest are interpreted in conjunction.? Chest CT was performed with intravenous infusion 70 cc of Omnipaque 350.? Chest radiograph shows mass versus dense consolidation of the right upper pulmonary lobe and chest CT confirms this as a large heterogeneous mass lesion arising from the region of the right hilum and invading the central mediastinum with encasement the right mainstem bronchus and invasion into the subcarinal pretracheal regions. Images obtained through the upper abdomen on CT show apparent polycystic renal d isease.? There are few small low-attenuation hepatic lesions consistent with cysts, although metastasis is not absolutely excluded this examination.? Adrenal glands are grossly unremarkable.? Spleen appears normal.? Visualized portions of pancreas appear intact. Note is made of coronary artery calcification. The aforementioned large heterogeneous pulmonary mass contains a few calcifications.? There is a rounded 22 millimeter in diameter left infrahilar intrapulmonary mass.? There are are multiple probable small nodular satellite lesions of the right upper lobe.? No gross superior mediastinal adenopathy or supraclavicular adenopathy seen.? Thoracic aorta and major branches appear intact.? No evidence of pulmonary embolic disease.? No pleural effusion seen. No gross bony lesion identified. IMPRESSION: The appearance is highly suggestive of right upper lobe lung carcinoma with extension to the central mediastinum and multiple cysts satellite lesions and probable left infrahilar pulmonary metastasis.? Please see above discussion. Patient declines further workup but wishes for palliative care and to enter into [facility] to be with his . The E.D. spoke w/ his daughter, Earline BerryMILANA who confirmed his failure to thrive at home and his DNR/DNI status. When I spoke w/ the patient about children in the area, he spoke of an adopted son of his whom they do not have contact and he spoke of a son of his own who has renal problems but it does not sound like he has any family to help at home. 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 He declined further investigation and teatment. Possibly causing some edema that resulted in the dysarthria he experienced on day of admission. Etiology of LUE weakness. Decadron IV in ED appears to have helped with the dysarthria and/or expressive dysphasia experienced on day of admission (vs resolving TIA). No need to wean off the decadron at this time. I think that his blurred vision could represent worsening cerebral edema/ midline shift from the extradural mass. I will increase his decadron to 6 mg daily and Cont Keppra. (3) Hypertension: Assessment and plan: Cont Losartan and metoprolol. Held HCTZ d/t hypokalemia. K now normalized. BP primarily in the 140-160's. Add amlodipine 5mg daily. Monitor (4) Parkinson disease: Assessment and plan: Cont Sinemet. (5) Hypokalemia: Status: Acute Assessment and plan: Stop HCTZ. K now corrected. Monitor (6) Discharge planning issues: Status: Acute Assessment and plan: Pt is not thriving at home. Not eating well / wt loss and has been falling. Eating better here. He wishes to reside in the nursing facility in [facility] where his is. Care management will assist in his disposition. (7) Gait disturbance: Status: Acute Assessment and plan: PT evaluation: 1.? Decreased strength to R UE/LE major muscle groups 2.? Impaired standing balance 3.? Impaired activity tolerance 4.? Limitation of joint range of motion in R shoulder 5.? Decreased DF and awareness of R foot 6.? Swelling in B LE Subjective Subjective Interval history since last seen: Patient walked for P.T. this morning and therapist noted that he is having blurred vision in his right lateral field and needs cueing to avoid walking into the wall. He did well w/ use of FWW and CGA. He thinks that the blurred vision has been there for only couple days, since he was admitted to the hospital. His right sided numbness is persistent. He is currently on decadon and Keppra for a 5.6 x 4 cm extra-axial intracranial mass on the left frontal area which may be a meningioma or a dural metastasis however, he also has a RUL lung mass w/ infrahilar nodes and he has some metastatic lesions in the left infrahilar area as well. He has opted not to pursue treatment. He had been evaluated at [facility] by neurosurgeon, Dr. Miner in April 20. Patient was started on Keppra as outpatient for seizure prophylaxis although per the admission H&P it was believed that he may have been having outpatient seizures. He had been falling down a lot at home and unable to care for himself. His is a resident at [facility] and he would like to join her. Exam Narrative Exam Narrative: Patient was seen to be walking with physical therapy using a front wheel walker. He did require contact guarding by the physical therapist as the patient did tend to veer off to his right. He did not lose his balance. Patient was then seen in the room while he was getting his lunch. He is alert and seems to be oriented and seems to know what he wants. He feels that he would not want treatment if is not going to make him any better and if it requires him to be away from his . He would like to be transferred to [facility] soon as possible. He denies any headaches. He does admit to blurred vision in the right lateral visual field. Right eye there is some injection of the sclera no facial edema or periorbital edema seen. He has no overt JVD. Examination of his right upper extremity is somewhat clumsy with his right hand he does have a parkinsonian tremor. His hand grasp is weaker on the right compared to left. Does have decreased sensation to light touch over the right upper and distal arm. Lungs are clear to auscultation Heart is regular rate and rhythm Abdomen soft nondistended Patient is 1+ pedal edema. I did not check his strength in his legs as he was sitting in the chair but he was observed to be able to weight-bear and walk with use of a front wheel walker. Objective Last Vital Signs Temp 35.9 C L 06/12/21 07:29 Pulse 58 L 06/12/21 07:29 Resp 20 06/12/21 07:29 BP 158/83 H 06/12/21 07:29 Pulse Ox 97 06/12/21 07:29
[2021-06-12] MEDS: Normal Saline Flush 10 ML SYR IVP (12:43)
[2021-06-12] MEDS: Dexamethasone 10 MG/ML VIAL IVP (12:43)
--- NOTE | 2021-06-12 13:27 | PT.INTREAT ---
Date of service: 06/12/21 Time of Service: 11:06 PT Notes Visit Reasons: Brain Mass,Lung Cancer Inpatient Physical Therapy Treatment Note [facility] Date: 06/12/2021 PRECAUTIONS: Activity as tolerated, Fall SUBJECTIVE: Naman is pleasant and agreeable to participating in PT. He reports that he wants to join his at [facility] and that he feels he cannot take care of himself at home at this time. He reports that he has been having increasingly blurry vision in his right eye, making it difficult to navigate obstacles when walking. He claims that he has had blurred vision for about 3 days at this point. OBJECTIVE: PAIN: No c/o pain BED MOBILITY/TRANSFERS Sit-stand: SBA Stand-sit: SBA GAIT Assistive Device: FWW Weight bearing: Full Assist: CGA-SBA Distance: 650' Deviation: Reports of blurred vision in R eye, difficulty navigating around obstacles on R, cueing to increase field scanning for safety ASSESSMENT: Patient demonstrates difficulty with navigating around obstacles with FWW support, reportedly due to blurry vision in right eye. Patient requires cueing for increased scanning for imprived navigation around obstacles on right side for safety. PLAN: Continue with gait training for improved safety and reduced risk for falls. TREATMENT CODE/TIME: Session 1: 11 minutes; 23941 (11:06) Session 2: Patient refused afternoon PT session
[2021-06-12 16:00] VITALS: BP 134/73; PULSE 58; RESP 21; TEMP 36.3; O2SAT 96
--- NOTE | 2021-06-12 19:12 | PDOC.CMPRO ---
- If Service Date Differs Date of service: 06/12/21 Time of Service: 19:12 Care Management Progress Note S/O: Giovanny was sitting up in bed when CM met with him. He reported that he is not doing well. He stated that he is not in pain, but instead he is very emotional about his disposition. He would like to either go to [facility] where his resides, or return home. CM attempted to reach admissions at [place] multiple times today, leaving messages. A Palliative care consultation was placed today. CM will continue to support discharge planning considerations. A: Giovanny is a 80 year old male admitted to [facility] on 06/08/21 with brain mass, lung cancer. P: Giovanny would like to go to [facility], where his resides. CM sent a referral for review. He will transport via w/c van vs private vehicle. He will follow up with his PCP and discharge plan of care. CM will continue to follow.
[2021-06-12 23:46] VITALS: BP 144/80; PULSE 64; RESP 17; TEMP 36.6; O2SAT 98
[2021-06-13] MEDS: Losartan 50 MG TAB PO (08:15)
[2021-06-13] MEDS: Atorvastatin 40 MG TAB 80 MG PO (08:15)
[2021-06-13] MEDS: Potassium Chloride 20 MEQ TABCR PO ×2 (08:15→20:25)
[2021-06-13] MEDS: Aspirin E.C. 81 MG TABEC PO (08:15)
[2021-06-13] MEDS: amLODIPine 5 MG TAB PO (08:16)
[2021-06-13] MEDS: Carbidopa 25/Levodopa 100 TAB PO ×3 (08:16→20:25)
[2021-06-13] MEDS: Clopidogrel 75 MG TAB PO (08:16)
[2021-06-13] MEDS: Dexamethasone 4 MG TAB 6 MG PO (08:16)
[2021-06-13] MEDS: levETIRAcetam 500 MG TAB PO ×2 (08:16→20:25)
[2021-06-13] MEDS: Normal Saline Flush 10 ML SYR IVP ×2 (08:17→20:25)
[2021-06-13 08:38] VITALS: BP 158/80; PULSE 86; RESP 16; TEMP 36.8; O2SAT 96
--- NOTE | 2021-06-13 11:33 | PDOC.CMPRO ---
- If Service Date Differs Date of service: 06/13/21 Time of Service: 11:33 Care Management Progress Note S/O: Giovanny was sitting up in a chair when CM met with him. His daughter was in the room visiting. CM had talked to admissions at [facility] this morning, who accepted him for admission, but they cannot offer him a bed until early next week. CM discussed this with Giovanny, who stated that he would like to return home with 24/7 supervision by his daughter until he can be admitted to [facility]. CM discussed this with the provider and PT, who all agreed that if he has 24/7 support as well as HH services, he will be safe at home while waiting for admission to the facility. He will likely be discharged home tomorrow. CM will communicate with admissions at [facility] to inform them of the plan. CM will continue to follow. A: Giovanny is a 80 year old male admitted to [facility] on 06/08/21 with brain mass, lung cancer. P: Giovanny would like to go to [facility], where his resides. CM sent a referral for review. He will transport via w/c van vs private vehicle. He will follow up with his PCP and discharge plan of care. CM will continue to follow.
--- NOTE | 2021-06-13 11:49 | CHAPLAIN ---
Giovanny said he believes he's being discharged soon, to a rehab for short term care, but he couldn't remember which one. (According to Workforce Management Consultant's note, Giovanny has asked to go to the [facility] [place], because his is there, but he couldn't remember the name of it, and it didn't tell me that his was there. He she has five children and many, many grandchildren. Most of his kids and grandkids live nearby he said.To Today his eyes are bothering him because of allergies.
--- NOTE | 2021-06-13 11:58 | PT.INTREAT ---
Date of service: 06/13/21 Time of Service: 11:46 PT Notes Visit Reasons: Brain Mass,Lung Cancer Inpatient Physical Therapy Treatment Note [facility] Date: 06/13/2021 PRECAUTIONS: Activity as tolerated, Fall SUBJECTIVE: Naman is pleasant and agreeable to participating in PT. He reports that he is feeling better today. OBJECTIVE: In p.m., patient had to be reminded to place right hand on walker with gait training, patient was utilizing left hand only. PAIN: No c/o pain BED MOBILITY/TRANSFERS Sit-supine: I with HOB flat Sit-stand: SBA Stand-sit: SBA GAIT Assistive Device: FWW Weight bearing: Full Assist: SBA Distance: 950' in a.m.; 300' in p.m. Deviation: Improved ability to navigate around obstacles on R without cueing TOILETING: Patient toileted independently ASSESSMENT: Patient demonstrates improved ability to navigate around obstacles with FWW support, without cueing. PLAN: Continue with gait training for improved safety and reduced risk for falls. TREATMENT CODE/TIME: Session 1: 11 minutes; 49571 (11:46) Session 2: 12 minutes; [id number] (14:46)
[2021-06-13 15:23] VITALS: BP 123/73; PULSE 59; RESP 16; TEMP 36.5; O2SAT 98
--- NOTE | 2021-06-13 15:33 | PGE_ITS ---
Date of Service Date of service: 06/13/21 Time of Service: 15:33 Assessment and Plan Assessment and plan (1) Mass of right lung: Status: Acute Assessment and plan: patient has elected not to pursue further evalution and treatment. The plan is for him to go home in the morning to his daughter while he awaits for [facility] to accept him. (2) Intracranial mass: Status: Acute Assessment and plan: patient's symptoms of right-sided visual field deficit seems to have improved since getting on the higher dose Decadron. I will keep him on the 6 mg daily for the time being. (3) Hypertension: Assessment and plan: Cont Losartan and metoprolol. Held HCTZ d/t hypokalemia. K now normalized. BP primarily in the 140-160's. Add amlodipine 5mg daily. Monitor (4) Parkinson disease: Assessment and plan: Cont Sinemet. (5) Hypokalemia: Status: Acute Assessment and plan: Stop HCTZ. K now corrected. Monitor (6) Discharge planning issues: Status: Acute Assessment and plan: Care management has placed referrals with [facility] and while he awaits placement he is decided to return home with his daughter who will stay with him until he can be admitted to [place] to join his . (7) Gait disturbance: Status: Acute Assessment and plan: Upon discharge patient will be referred to outpatient physical therapy and Occupational Therapy along with home nursing and home health care pending his placement in [place] Subjective Subjective Interval history since last seen: Patient's had a much better day today. He reports that the right-sided blurred vision has improved. Appetite is good. He is voiding okay. Last BM was yesterday. He has no nausea or vomiting and no headaches. Exam Narrative Exam Narrative: Giovanny is sitting up in his bed watching TV eating blayne crackers. Face is without asymmetry speech is clear coherent no dysarthric speech. He has full extraocular motion is intact. Visual walden to confrontation were grossly intact with no blurred vision or hemianopsia in the right lateral visual field. Lungs are clear to auscultation Heart is regular rate and rhythm Abdomen soft nondistended normal bowel sounds Motor exam reveals he has parkinsonian tremor worse in his right hand than his left hand. He has some residual weakness in the right hand and right arm. He is able to hold his arm up against gravity but with resistance I can push his arm down rather easily. 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 He has normal strength with pedal pushes. Objective Last Vital Signs Temp 36.5 C 06/13/21 15:23 Pulse 59 L 06/13/21 15:23 Resp 16 06/13/21 15:23 BP 123/73 06/13/21 15:23 Pulse Ox 98 06/13/21 15:23
[2021-06-13 20:30] VITALS: O2SAT 98
[2021-06-13 23:46] VITALS: BP 144/81; PULSE 56; RESP 16; TEMP 35.4; O2SAT 98
[2021-06-14 07:40] VITALS: BP 146/78; PULSE 53; RESP 17; TEMP 36; O2SAT 97
[2021-06-14] MEDS: Atorvastatin 40 MG TAB 80 MG PO (08:46)
[2021-06-14] MEDS: Clopidogrel 75 MG TAB PO (08:47)
[2021-06-14] MEDS: Dexamethasone 4 MG TAB 6 MG PO (08:47)
[2021-06-14] MEDS: Aspirin E.C. 81 MG TABEC PO (08:47)
[2021-06-14] MEDS: levETIRAcetam 500 MG TAB PO (08:47)
[2021-06-14] MEDS: Carbidopa 25/Levodopa 100 TAB PO ×2 (08:47→13:35)
[2021-06-14] MEDS: Potassium Chloride 20 MEQ TABCR PO (08:47)
[2021-06-14] MEDS: Losartan 50 MG TAB PO (08:47)
[2021-06-14] MEDS: amLODIPine 5 MG TAB PO (08:47)
--- NOTE | 2021-06-14 14:18 | W.PM.DS.N ---
Date of service: 06/14/21 Time of Service: 14:18 DS: Diagnosis Discharge Diagnosis (1) Mass of right lung: Status: Acute (2) Intracranial mass: Status: Acute (3) Hypertension: (4) Parkinson disease: (5) Hypokalemia: Status: Acute (6) Gait disturbance: Status: Acute Discharge Plan Disposition Patient Disposition: HOME W/HOME HEALTH SERVICE Condition: Improving Discharge Details Reason For Visit: Brain Mass,Lung Cancer Admit Date/Time: 06/08/21 15:06 Admit Provider: Omar Zaidi Attending Provider: Omar Zaidi Primary Care Provider: Efrain Doss [facility] Course Hospital Course: 80-year-old male w Pmhx of hypertension, colon cancer, hypercholesterolemia, brain mass and coronary artery disease s/p stenting. He presented to the ED with right arm and leg weakness, expressive aphasia and headache. His head CT shows a large left-sided extra axial mass. His CXR shows a large right upper lobe mass. He was seen on April 20/2022 @ [facility] by Dr Miner, neurosurgery. He has 5x4 cm mass in left anterior frontal lobe and suggested a lung biopsy. He had some seizure activity and was started on Keppra there. He is clear that he does not want neurosurgical intervention, surgical or medical intervention. He is seeking comfort care. He wants to go to [facility], however they are not taking patients right now. He has decided to go home with family and home health services. Discussed with Dr Martina Park Meds and New Rx's Prescriptions: New dexamethasone 4 mg Tablet 6 mg PO DAILY Qty: 30 0RF amlodipine 5 mg Tablet 5 mg PO DAILY Qty: 30 0RF Continued nitroglycerin 0.4 MG tablet, sublingual 0.4 mg Sublingual DIRECTED PRN0RF aspirin [Aspir-81] 81 MG tablet,delayed release (DR/EC) 81 mg PO DAILY 0RF clopidogrel [Plavix] 75 MG tablet 75 mg PO DAILY 0RF atorvastatin [Lipitor] 80 MG tablet 80 mg PO DAILY 0RF losartan 50 mg Tablet 50 mg PO DAILY 0RF levetiracetam 500 mg Tablet 500 mg PO BID 0RF carbidopa-levodopa 25-100 mg Tablet 1 tab PO TID 0RF Discontinued cephalexin 500 MG capsule 500 mg PO TID 0RF hydrochlorothiazide 25 MG tablet 25 mg PO DAILY 0RF metoprolol succinate 25 MG tablet extended release 24 hr 25 mg PO DAILY 0RF Discharge Instructions Instructions: Lung Cancer (DC), Meningioma (DC) Stand Alone Forms: Nursing Discharge Form Referrals: Efrain Doss [Primary Care Provider] - (Please call to make an Appointment with your primary care Dr) Activity:: Activity as Tolerated Equipment/Supplies:: No Equipment Needed Diet:: As Tolerated Discharge Orders Discharge Orders: Discharge Order (Routine); Ordered 06/14/21 Ordered By: Chanda Atkinson Discharge Data Discharge Date/Time-TO BE ENTERED AT DEPARTURE: 06/14/21 16:09 DS: Summary Time Spent with Patient providing and/or coordinating discharge services: Less than 30 minutes Status at Discharge Functional status at discharge: uses cane/walker Overall status at discharge: patient is progressing back to baseline Mental Status: mental status grossly normal Speech and Movement: speech and movement normal and speech clear Mood: congruent mood Affect: normal affect and blunted Quality: AMI Clinical Trial Participant: No Exam Narrative Exam Narrative: Pt sitting in bed.? Pleasant and conversational. ? Const General: cooperative and frail appearing Nutritional Appearance: thin Orientation: alert and oriented x3 Eyes General: appearance normal, both eyes and all related structures Sclera: sclerae normal Resp Effort & Inspection: normal respiratory effort Auscultation: clear to auscultation bilaterally Cardio Rate: regular rate Rhythm: regular rhythm Heart Sounds: S1 normal and S2 normal GI Palpation: soft and nontender Auscultation: normal bowel sounds Skin General skin exam: no rashes or lesions noted Neuro Cranial Nerves: facial strength normal and tongue midline Motor: strength not 5/5 throughout (RUE field merchandiser 4/5 and slow to mount full force.) Extrem General: no pedal edema and no calf tenderness Psych Appearance: grossly normal Speech and Movement: speech clear Affect: normal affect Const General: cooperative and frail appearing Nutritional Appearance: thin Orientation: alert and oriented x3 Eyes General: appearance normal, both eyes and all related structures Sclera: sclerae normal Resp Effort & Inspection: normal respiratory effort Auscultation: clear to auscultation bilaterally Cardio Rate: regular rate Rhythm: regular rhythm Heart Sounds: S1 normal and S2 normal GI Palpation: soft and nontender Auscultation: normal bowel sounds Skin General skin exam: no rashes or lesions noted Neuro Cranial Nerves: facial strength normal and tongue midline Motor: strength not 5/5 throughout (RUE field merchandiser 4/5 and slow to mount full force.) Extrem General: no pedal edema and no calf tenderness Psych Appearance: grossly normal Mental Status: mental status grossly normal Speech and Movement: speech and movement normal and speech clear Mood: congruent mood Affect: normal affect and blunted DS: Data Vitals/I&O Vitals and I&O: Vital Signs Temperature 36 C L 06/14/21 07:40 Temperature Source Tympanic 06/14/21 07:40 Pulse 53 L 06/14/21 07:40 Pulse Rhythm Regular 06/14/21 08:52 Pulse 70 06/08/21 14:50 Respiratory Rate 17 06/14/21 07:40 Respiratory Effort 06/14/21 08:52 Respiratory Depth Normal 06/14/21 08:52 Respiratory Pattern Normal 06/14/21 08:52 Blood Pressure 146/78 H 06/14/21 07:40 Blood Pressure Mean 95 06/08/21 15:15 Blood Pressure Position Sitting 06/08/21 09:24 Pulse Oximetry 97 06/14/21 07:40 Oxygen Delivery Method Room Air 06/14/21 07:40 Oxygen Flow Rate 0 06/14/21 07:40 Pain Level 0 06/13/21 23:46 Comment 06/13/21 23:46 Intake & Output 06/13/21 06/14/21 06/14/21 23:59 11:59 23:59 Intake Total 825 / 1195 480 / 480 Output Total 500 / 1700 1100 / 1475 375 / 1475 Balance 325 / -505 -620 / -995 -375 / -995 Weight 71 kg Intake: IV Oral 820 / 1180 480 / 480 Output: Urine 500 / 1700 1100 / 1475 375 / 1475 Other: Urine Color Pale Pale Yellow Yellow Yellow Urine Appearance Clear Clear Clear Urine Odor Normal Normal None Comment x2 voids urinal and toilet Stool Size Moderate Stool Characteristics Formed Brown Voiding Methods Urinal Toilet Toilet Urinal Data Completed and Pending Completed studies during hospitalization [Text1]: Lung CT : Rad: The appearance is highly suggestive of right upper lobe lung carcinoma with extension to the central mediastinum and multiple cysts satellite lesions and probable left infrahilar pulmonary metastasis.? CT and MR - Rad: I findings of a large left frontal extra-axial mass with appearance most consistent with meningioma, dural metastasis not entirely excluded but unlikely.? No other mass lesion identified to suggest presence metastatic process.? Midline shift to the right is estimated at about 4-5 millimeters. PFSH All Active Problems Gait disturbance (Acute) Discharge planning issues (Acute) Hypokalemia (Acute) Mass of right lung (Acute) Intracranial mass (Acute) Medical History High cholesterol Hypertension Lung cancer Myocardial infarction Parkinson disease Surgical History History of coronary artery stent placement Social History Smoking/Tobacco Use Status: Never Smoking risk assessment performed?: Yes Alcohol Intake: never Drug use: Never Substance use type: does not use Do you feel safe at home: Yes Do you feel safe in your relationship?: Yes Additional Social history: in [facility] and has dementia. 5 kids.
--- NOTE | 2021-06-14 15:46 | PDOC.HHF2F_ITS ---
Home Health Certification Home Health Certification: 1. Encounter Date and Reason I certify that Giovanny Patiño was seen by Chanda Atkinson NP on 06/14/21 and that I had a [id number] encounter with this patient that meets the physician face to face encounter requirements. 2. Clinical Findings Supporting Skilled Need and Homebound Status I certify that home health services are medically necessary, include either intermittent custodial and/or physical/speech therapy, and that this patient is homebound in that absences from the home require considerable and taxing effort and are infrequent or of short duration, or are attributable to the need to receive medical care. [X] (a) Attached documentation from encounter provides clinical findings supporting skilled need and homebound status (including what assistance patient requires to leave the home). The encounter with the patient was in whole, or in part, for the following medical condition, which is the primary reason for home health care: Brain Mass,Lung Cancer Prison: development, management, and evaluation of patient's care plan, monitor and assess medical condition, instruct on medication regimen and signs/symptoms to report. He is at risk for decompensation due to recent hospitalization. 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 He has a deteriorating cognitive impairment causing him to be unsafe if unattended. 3. Certification and Authentication I certify that I composed the above information based on my clinical judgement relating to this patient's medical condition and, if applicable, clinical findings communicated to me by the NPP or inpatient physician who performed the Home Health Referral. All further orders will be obtained through Lu Khan MD (Community Based Physician - PCP)
--- NOTE | 2021-06-14 16:28 | CMDISCH_ITS ---
- If Service Date Differs Date of service: 06/14/21 Time of Service: 16:28 LACE Index Scoring Tool - Questions: Length of Stay (in days): 4 - 6 Acuity (Admit via E.D.?): Yes Comorbidities: Previous M.I., Metastatic Solid Tumor E.D. Visits: 1 - Answers: Total Score: 13 Risk of Readmission: High Risk Care Management Discharge Reason for Hospitalization: brain mass, lung cancer Discharge Plan: Giovanny will return home today with 03/09 supervision and new orders for RN, PT, OT. He has been accepted at [facility], which is not open to admissions until next week. He will transition to [place] from home, once they are able to accept him. He will be driven home by his daughter, who will be staying with him. He will follow up with his PCP and discharge plan of care. He is happy to be going home, and is looking forward to going to [facility], to be with his . Patient/Family Education Needs: Review discharge instructions and limitations, discussion of self care needs including ask me three. Services Needed at Discharge: Home Health Care Services (HH Rn, PT, OT)
--- NOTE | 2021-06-14 18:00 | PT.INDS ---
Date of service: 06/14/21 PT Notes Visit Reasons: Brain Mass,Lung Cancer Physical Therapy Inpatient Discharge Summary Date: 06/14/2021 Dates of Service: 06/09/2021 through 06/14/2021 This is a clinical summary of care provided for the duration of dates listed above. No charge was made in the completion of this documentation. Referring Doctor: Omar Zaidi MD PT Orders: PT CONSULT: Eval/treat Precautions: Fall. Standard. Activity as tolerated. Patient Profile/Admitting Diagnosis: Giovanny is a 80-year-old male with admitting diagnoses of mass of right lung, intracranial mass, hypertension, myocardial infarction, consents disease, and hypokalemia with referral to physical therapy for functional mobility assessment and safe discharge planning recommendations. PMHX: All Active Problems?(Updated 06/08/21 @ 20:45 by Omar Zaidi MD) Discharge planning issues (Acute) Hypokalemia (Acute) Mass of right lung (Acute) Intracranial mass (Acute) Medical History? High cholesterol Hypertension Lung cancer Myocardial infarction Parkinson disease Surgical History? History of coronary artery stent placement Social History/Home Situation: Lives alone in a private home.? has been living in a assisted facility in [place] since March of this year.? Independent with mobility performance indoors without assistive device.? Uses a small-based quad cane, sometimes wooden stick, for outdoor ambulation. Equipment Owned/DME: [employer], wooden stick Subjective: NT. See most recent EMBEDDED FIRMWARE DEVELOPER notes. Objective: General Observation: S NT. See most recent EMBEDDED FIRMWARE DEVELOPER notes. Mental Status: NT. See most recent EMBEDDED FIRMWARE DEVELOPER notes. Pain: NT. See most recent EMBEDDED FIRMWARE DEVELOPER notes. ROM: Right Upper Extremity: ? Shoulder Flexion to 100 degrees. Shoulder abduction 90 degrees. Elbow flexion WFL. Wrist flexion WFL. Functional opening and closing of hand WFL. Left Upper Extremity:? houlder Flexion WFL. Shoulder abduction WFL. Elbow flexion WFL. Wrist flexion WFL. Functional opening and closing of hand WFL. Right Lower Extremity: Hip flexion WFL. Hip abduction WFL. Knee flexion WFL. Ankle dorsiflexion to neutral only. Ankle plantarflexion WFL. Left Lower Extremity: Hip flexion WFL. Hip abduction WFL. Knee flexion WFL. Ankle dorsiflexion WFL. Ankle plantarflexion WFL. Strength: Right Upper Extremity: Shoulder flexors 3-/5. Shoulder abductors 3-/5. Elbow flexors 4-/5. Elbow extensors 4-/5. Reactor Service Operator weak. Left Upper Extremity: Shoulder flexors 4/5. Shoulder abductors 4/5. Elbow flexors 4/5. Elbow extensors 4/5. Reactor Service Operator strong. Right Lower Extremity: Hip flexors 3+/5. Hip abductors 3+/5. Knee flexors 4-/5. Knee extensors 4-/5. Ankle dorsiflexors 3-/5. Ankle plantarflexors 4-/5. Left Lower Extremity: Hip flexors 4/5. Hip abductors 5/5. Knee flexors 5/5. Knee extensors 4/5. Ankle dorsiflexors 4/5. Ankle plantarflexors 4/5. Bed Mobility/Transfers: Sit to stand standby assist Stand to sit standby assist Gait: Instructed patient with level surface ambulation of 950 feet requiring standby assist using FWW. Radha increasing. Needed continued reminder to put R hand onto R walker throughout ambulation. Balance: Static Sitting: Normal Dynamic Sitting: Normal Static Standing: Fair Dynamic Standing: Fair Special Tests: Mobility Limitations Standardized Measure [facility] 6 clicks Basic Mobility Inpatient Short Form: Raw Score: 21? CMS Score: 29% deficit? ? ? 4-stage balance test: Able to perform feet together for 10 seconds but is unable to do semi-tandem, full tandem, and one-legged stance with increased risk for falls. Neuro Testing: Impaired rapid alternating movement.? Awareness of R side appears diminished as evidenced by R foot hitting R hindleg of walker. ASSESSMENT: Giovanny demonstrates difficulty with ambulation,? impaired balance,? and decreased AROM/weakness in R UE resulting to impairment in mobility ADL performance.? Patient presents with clinical signs and symptoms consistent with current/admitting diagnoses that have resulted to mobility limitations, gait instability, generalized weakness, and overall ADL decline as demonstrated by the following impairment level findings: 1.? Decreased strength to R UE/LE major muscle groups 2.? Impaired standing balance 3.? Impaired activity tolerance 4.? Limitation of joint range of motion in R shoulder 5.? Decreased DF and awareness of R foot 6.? Swelling in B LE Impairments are contributing to the following functional limitations: 1.? Difficulty with ambulation without assistive device and physical assistance 2.? Increased completion time for mobility ADL performance 3.? Increased risk for falls 4.? Difficulty with managing steps alone safely Goals: Goals X1 week 1. Supine-Sit independent NOT MET 2. Sit-Supine independent MET 3. Sit-Stand independent NOT MET 4. Stand-Sit independent with FWW NOT MET 5. Bed-Chair independent with FWW NOT MET 6. Chair-Bed independent with FWW NOT MET 7. Independent gait on level surface with use of FWW for at least 300 feet without report of pain nor dyspnea NOT MET 8. Good static and dynamic standing balance/tolerance NOT MET DISCHARGE RECOMMENDATIONS: [] ? Home with no services [] [] ? Home with services [specify] [] ? Home with outpatient PT [] [X] ? SNF for continued rehabilitation.? Patient will benefit from assisted facility placement for continued skilled physical therapy services in order to progress mobility level, strength, and balance in preparation for a safe discharge to home. [] ? [facility] [] [] ? SNF versus LTC based on ability to participate and progress [] TREATMENT CODE/TIME:? NC Thank you for the opportunity to participate in the care of this patient. Diana Willams PT, DPT, CLT [facility] [place], [place]
== END 2021-06-14 16:09 | disposition home health service (06) | DRG 57 ==
LOC: ER 14:28 → MS 15:46
PROVIDERS: Admitting Provider Family Medicine; Emergency Provider Emergency Medicine; PCP Family Medicine; Visit Provider Family Medicine
DX: G81.91 Hemiplegia, unspecified affecting right dominant side (principal); C34.11 Malignant neoplasm of upper lobe, right bronchus or lung; C78.02 Secondary malignant neoplasm of left lung; R47.01 Aphasia; D18.09 Hemangioma of other sites; I10 Essential (primary) hypertension; G20 Parkinson's disease; E87.6 Hypokalemia; R63.4 Abnormal weight loss; Z68.21 Body mass index [BMI] 21.0-21.9, adult; R29.6 Repeated falls; Z91.81 History of falling; E78.5 Hyperlipidemia, unspecified; I25.10 Atherosclerotic heart disease of native coronary artery without angina pectoris; I25.2 Old myocardial infarction; Z66 Do not resuscitate; E78.00 Pure hypercholesterolemia, unspecified; R47.1 Dysarthria and anarthria; R26.9 Unspecified abnormalities of gait and mobility; H53.8 Other visual disturbances; Z95.5 Presence of coronary angioplasty implant and graft; Z85.038 Personal history of other malignant neoplasm of large intestine; G40.909 Epilepsy, unspecified, not intractable, without status epilepticus; R51.9 Headache, unspecified
CPT/HCPCS: 36415; 36416; 70553; 80048; 80053; 82962; 86850; 86900; 86901; 87635; 93005; 96365; 96366; 96368; 97110; 97116; 97162; 97530; 99285; 70450; 71045; 71260; 81003; 81015; 83735; 84484; 85025; 85610; 85730; 93010; 99222; 99231; 99232; 99238; J1100; J3480; J3490; J8540

== ENCOUNTER 2021-12-19 21:36 | Outpatient (REF) | payer MEDICARE, OTHER, SELFPAY ==
[2021-12-19 21:45] LABS: Bilirubin Negative (Negative); Blood Trace-intact (Negative); Clarity Clear (Clear); Glucose Negative (Negative); Ketones Negative (Negative); Leukocyte Esterase Negative (Negative); Nitrite Negative (Negative); Specific Gravity 1.025 (1.005-1.025); Urobilinogen 0.2 EU/dL (Up TO 0.2)
[2021-12-19 22:02] LABS: Bacteria Few HPF (Negative); C & S Indicated? No; Casts 0-2 Hyaline LPF (Negative); Crystals Negative HPF (Negative); Epithelial Cells Rare HPF (Negative); Mucus Trace (Negative); WBC 0-2 HPF (0-5)
== END 2021-12-19 21:37 | disposition home or self-care (01) ==
LOC: LBN 21:36
PROVIDERS: PCP Family Medicine; Visit Provider Internal Medicine
DX: N18.30 Chronic kidney disease, stage 3 unspecified (principal); R32 Unspecified urinary incontinence
CPT/HCPCS: 81003; 81015